=== PATIENT | female | born 1980 | race Caucasian/White ===

== ENCOUNTER 2016-03-31 17:49 | Emergency (ER) | payer OTHER ==
[~2016-03-31] VITALS: Ht 165.1 cm; Wt 57.5 kg
[~2016-03-31 17:49] MED LIST: IBUP-1050 PO; NAPR1TAB9 PO; POLY335019 PO; VNTHFA/IN INH
[2016-03-31 18:03] VITALS: TEMP 36.9; Ht 165.1 cm; Wt 57.5 kg
[2016-03-31] MEDS ORDERED: ONDANSETRON INJ 2 MG/ML 2 ML VIAL IV STA (19:26)
[2016-03-31] MEDS ORDERED: KETOROLAC TROMETHAMINE 30 MG/ML VIAL IV STA (19:26)
[2016-03-31] MEDS ORDERED: SODIUM CHLORIDE 0.9% 1000ML 1,000 ML IV STA (19:26)
[2016-03-31 20:47] LABS: HEMATOCRIT 25.2 % (37-47); MEAN CELL VOLUME 64.9 fL (80-100); MEAN CORPUSCULAR HGB CONC 27.8 g/dl (32-36); PLATELET COUNT 162 K/uL (130-400); RED BLOOD COUNT 3.88 M/uL (4.2-5.4); WHITE BLOOD COUNT 7.44 K/uL (4.8-10.8)
[2016-03-31 20:57] LABS: CALCIUM 8.4 mg/dl (8.5-10.1); CREATININE 0.56 mg/dl (0.60-1.20); POTASSIUM 3.4 mmol/L (3.5-5.1)
[2016-03-31 21:00] LABS: ALB/GLOB RATIO 1.5 (0.9-2); COMPLETE YES; EOS % 0.4 %; HYPOCHROMIA PRESENT; IG% 0.3 %; LYMPH % 5.8 %; LYMPH ABS # 0.43 K/uL (1.2-3.4); MICROCYTOSIS PRESENT; MONO % 3.8 %; NEUT % 89.7 %
--- NOTE | 2016-03-31 21:59 | EMERGENCY ROOM VISIT NOTE ---
History First contact with patient: 19:13 Chief Complaint: FLU LIKE SX Stated Complaint: FEVER,VOMITING,BODY ACHES,DIZZINESS History of Present Illness The patient is a 35 year old female who presents to the Emergency Room with complaints of flulike symptoms which began this morning. The patient reports that she has had vomiting, body aches, diarrhea, dizziness and lightheadedness. Her [id number]-[id number] was recently diagnosed with influenza. The patient has a history of anemia. She has not taken her temperature at home, but has felt feverish. She has not been taking any medications at home for her symptoms. She did not receive a flu vaccine this year. She denies any chest pain, shortness of breath, cough, abdominal pain, neck pain/stiffness. Review of Systems A complete 10-point Review of Systems was discussed with the patient, with pertinent positives and negatives listed in the History of Present Illness. All remaining Review of Systems questions can be considered negative unless otherwise specified. Past Medical/Surgical History Medical Problems: (1) IUGR (2) Migraine (3) R/O labor (4) Vaginal delivery Family History Cancer Diabetes mellitus Hypertension Social History Smoking Status: Current Every Day Smoker Alcohol Use: none Drug Use: none Marital Status: , in relationship Housing Status: lives with family, lives with significant other Occupation Status: employed Current/Historical Medications Scheduled PRN Albuterol Hfa (Ventolin Hfa), 2 PUFFS INH QID PRN for Asthma Symptoms Ibuprofen (Advil), 200-600 MG PO Q4H PRN for Pain or Fever Polyethylene Glycol 3350 (Miralax), 17 GM PO DAILY PRN for Constipation Allergies Coded Allergies: Penicillins (Verified Allergy, Severe, HIVES-SOB, 03/31/16) Physical Exam Vital Signs Date Time Temp Pulse Resp B/P Pulse Ox O2 Delivery O2 Flow Rate FiO2 03/31/16 22:08 87 18 121/60 99 03/31/16 20:43 99 18 112/63 100 Room Air 03/31/16 18:03 36.9 114 18 128/68 100 Room Air Physical Exam VITALS: Vitals are noted on the nurse's note and reviewed by myself. Vital signs stable. GENERAL: This is a 35-year-old female, in no acute distress, nondiaphoretic, well-developed well-nourished. SKIN: The skin was without rashes. EARS: External auditory canals clear, tympanic membranes pearly forde without erythema or effusion bilaterally. EYES: Pupils equal round and reactive to light and accommodation. Extraocular movements intact. MOUTH: Mucous membranes moist. Tonsils are not enlarged. Pharynx without erythema or exudate. NECK: Supple without nuchal rigidity. No lymphadenopathy. HEART: Regular rate and rhythm without murmurs gallops or rubs. LUNGS: Clear to auscultation bilaterally without wheezes, rales or rhonchi. ABDOMEN: Soft, nontender to palpation. NEURO: Patient was alert and oriented to person place and time. Medical Decision & Procedures Laboratory Results 03/31/16 20:30 Red Blood Count 3.88, Mean Corpuscular Volume 64.9, Mean Corpuscular Hemoglobin 18.0, Mean Corpuscular Hemoglobin Concent 27.8, Neutrophils (%) (Auto) 89.7, Lymphocytes (%) (Auto) 5.8, Monocytes (%) (Auto) 3.8, Eosinophils (%) (Auto) 0.4 , Basophils (%) (Auto) 0.0, Neutrophils # (Auto) 6.68, Lymphocytes # (Auto) 0.43 , Monocytes # (Auto) 0.28, Eosinophils # (Auto) 0.03, Basophils # (Auto) 0.00 03/31/16 20:30 Test 03/31/16 19:26 03/31/16 20:20 03/31/16 20:30 Urine Test NEG (NEG) Influenza Type A Antigen Neg for Influ A (NEG) Influenza Type B Antigen Neg for Influ B (NEG) White Blood Count 7.44 K/uL (4.8-10.8) Red Blood Count 3.88 M/uL (4.2-5.4) Hemoglobin 7.0 g/dL (12.0-16.0) Hematocrit 25.2 % (37-47) Mean Corpuscular Volume 64.9 fL (80-100) Mean Corpuscular Hemoglobin 18.0 pg (25-34) Mean Corpuscular Hemoglobin Concent 27.8 g/dl (32-36) Platelet Count 162 K/uL (130-400) Neutrophils (%) (Auto) 89.7 % Lymphocytes (%) (Auto) 5.8 % Monocytes (%) (Auto) 3.8 % Eosinophils (%) (Auto) 0.4 % Basophils (%) (Auto) 0.0 % Neutrophils # (Auto) 6.68 K/uL (1.4-6.5) Lymphocytes # (Auto) 0.43 K/uL (1.2-3.4) Monocytes # (Auto) 0.28 K/uL (0.11-0.59) Eosinophils # (Auto) 0.03 K/uL (0-0.5) Basophils # (Auto) 0.00 K/uL (0-0.2) RDW Standard Deviation 39.6 fL (36.4-46.3) RDW Coefficient of Variation 16.7 % (11.5-14.5) Immature Granulocyte % (Auto) 0.3 % Immature Granulocyte # (Auto) 0.02 K/uL (0.00-0.02) Hypochromasia PRESENT Microcytosis PRESENT Anion Gap 10.0 mmol/L (3-11) Est Creatinine Clear Calc Drug Dose 128.6 ml/min Estimated GFR () 142.0 Estimated GFR (Non- 122.5 BUN/Creatinine Ratio 23.0 (10-20) Calcium Level 8.4 mg/dl (8.5-10.1) Total Bilirubin 0.5 mg/dl (0.2-1) Aspartate Amino Transf (AST/SGOT) 11 U/L (15-37) Alanine Aminotransferase (ALT/SGPT) 12 U/L (12-78) Alkaline Phosphatase 58 U/L (45-117) Total Protein 6.8 gm/dl (6.4-8.2) Albumin 4.1 gm/dl (3.4-5.0) Globulin 2.7 gm/dl (2.5-4.0) Albumin/Globulin Ratio 1.5 (0.9-2) Medications Administered Medications (Trade) Dose Ordered Sig/Shoaib Route Start Time Stop Time Status Last Admin Dose Admin Sodium Chloride (Nss 1000ml) 1,000 ml @ 999 mls/hr Q1H1M STAT IV 03/31/16 19:26 03/31/16 20:26 DC 03/31/16 20:27 999 MLS/HR Ketorolac Tromethamine (Toradol Inj) 30 mg NOW STAT IV 03/31/16 19:26 03/31/16 19:29 DC 03/31/16 19:26 30 MG Ondansetron HCl (Zofran Inj) 4 mg NOW STAT IV 03/31/16 19:26 03/31/16 19:29 DC 03/31/16 20:26 4 MG Medical Decision Differential diagnosis includes gastroenteritis, colitis, influenza, viral syndrome, among others. The patient was evaluated as above. Labs were drawn and IV access was obtained. Imaging studies were performed and read by radiology as above. The patient was medicated with 1 L normal saline solution, 30 mg Toradol IV and 4 mg Zofran IV. The patient was reassessed multiple times during their stay in the emergency department and remained in stable condition. The patient is a 35-year-old female who presents today complaining of flulike symptoms. Labs revealed no leukocytosis. The patient is anemic with a hemoglobin of 7. This does I spoke with the patient, and she reports that this has actually improved from her most recent hemoglobin, which was 5. There were no concerning electrolyte abnormalities. Influenza was negative. The patient felt better after IV fluids, Toradol and Zofran. I feel that the patient likely has a gastroenteritis. She was encouraged to follow up closely with her primary care provider. Based on the patient's presentation, lab results, and imaging studies, I feel the patient is stable for outpatient treatment. The patient's case was reviewed with Dr. Elena, ED attending physician, who agreed with my assessment and treatment plan. Discharge instructions were reviewed with the patient. The patient verbalized understanding of my assessment and treatment plan and was discharged home in good condition. Impression Primary Impression: Influenza-like symptoms Departure Information Dispostion Home / Self-Care Condition GOOD Referrals No Doctor, Assigned (PCP) Patient Instructions A Signature Page, My [facility] RELEASEIF Additional Instructions For pain control, you can use the following [id number]-[id number] medicines (if >12 yo): - Regular strength (325mg/tab) Tylenol (acetaminophen) 2 tabs every 4-6 hours as needed. Do not exceed 12 tablets in a 24 hour period. Avoid taking more than 4 grams (4000 mg) of Tylenol per day. This includes any other sources of acetaminophen you may take on a regular basis. - Regular strength (200 mg/tab) Advil (ibuprofen) 1-2 tabs every 4-6 hours as needed. Do not exceed a dose of 3200 mg per day. Rest and drink plenty of fluids. Off work tomorrow. 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 Return to the emergency department with any new/concerning symptoms.
[2016-03-31 22:08] VITALS: BP 121/60; PULSE 87; O2SAT 99
== END 2016-03-31 22:09 | disposition home or self-care (01) ==
LOC: C.EDB 17:50 → C.EDC 22:09
DX: K52.9 Noninfective gastroenteritis and colitis, unspecified (principal); D64.9 Anemia, unspecified; F17.200 Nicotine dependence, unspecified, uncomplicated

== ENCOUNTER 2016-05-13 21:02 | Emergency (ER) | payer OTHER ==
[~2016-05-13] VITALS: Ht 162.6 cm; Wt 59.7 kg
[~2016-05-13 21:02] MED LIST changes: -NAPR1TAB9 PO
[2016-05-13 21:11] VITALS: TEMP 36.9; Ht 162.6 cm; Wt 59.7 kg
[2016-05-13] MEDS ORDERED: SODIUM CHLORIDE 0.9% 1000ML 1,000 ML IV STA (22:21)
[2016-05-13] MEDS ORDERED: KETOROLAC TROMETHAMINE 30 MG/ML VIAL IV STA (22:21)
[2016-05-13] MEDS ORDERED: ACETAMINOPHEN 500 MG TAB PO STA (22:21)
--- NOTE | 2016-05-13 22:26 | EMERGENCY ROOM VISIT NOTE ---
History Report prepared by Cedrick: Renetta Linares Under the Supervision of: Dr. Mic Wasserman M.D. First contact with patient: 22:13 Chief Complaint: RIB PAIN Stated Complaint: SHARP PAIN IN L SIDE History of Present Illness The patient is a 35 year old female who presents to the Emergency Room with complaints of persistent left sided rib pain that started around 1300 today. She rates her pain a 9/10 in severity. The patient has taken Ibuprofen and Tylenol which did not offer relief of her pain. She denies fevers, cough, abdominal pain, chest pain, or shortness of breath. Source of History: patient Onset: 1300 today Position: other (Ribs, left side ) Symptom Intensity: 9/10 Timing: other (Persistent) Modifying Factors (Relieving): other (None) Associated Symptoms: No SOB, No abdominal pain, No chest pain, No cough Review of Systems See HPI for pertinent positives & negatives. A total of 10 systems reviewed and were otherwise negative. Past Medical & Surgical Medical Problems: (1) IUGR (2) Migraine (3) R/O labor (4) Vaginal delivery Family History Cancer Diabetes mellitus Hypertension Social History Smoking Status: Current Every Day Smoker Alcohol Use: none Drug Use: none Marital Status: , in relationship Housing Status: lives with family, lives with significant other Occupation Status: employed Current/Historical Medications Scheduled PRN Albuterol Hfa (Ventolin Hfa), 2 PUFFS INH QID PRN for Asthma Symptoms Ibuprofen (Advil), 200-600 MG PO Q4H PRN for Pain or Fever Polyethylene Glycol 3350 (Miralax), 17 GM PO DAILY PRN for Constipation Allergies Coded Allergies: Penicillins (Verified Allergy, Severe, HIVES-SOB, 05/13/16) Physical Exam Vital Signs Date Time Temp Pulse Resp B/P Pulse Ox O2 Delivery O2 Flow Rate FiO2 05/14/16 00:41 87 20 95/66 98 05/13/16 22:45 84 18 111/71 96 Room Air 05/13/16 21:11 36.9 101 16 125/82 100 Room Air Physical Exam CONSTITUTIONAL: Mild painful distress HEENT: No icterus, moist mucous membranes NECK: No meningismus, trachea is midline. CARDIOVASCULAR: Regular rate, normal perfusion RESPIRATORY: Unlabored breathing. Clear to auscultation. GASTROINTESTINAL: Mild left upper quadrant tenderness GENITOURINARY: No flank tenderness MUSCULOSKELETAL: Full range of motion NEUROLOGIC: No acute gross focal deficits. PSYCHIATRIC: Normal affect SKIN: Normal for ethnicity. Medical Decision & Procedures Laboratory Results 05/13/16 22:40 Red Blood Count 4.05, Mean Corpuscular Volume 64.9, Mean Corpuscular Hemoglobin 17.5, Mean Corpuscular Hemoglobin Concent 27.0, Neutrophils (%) (Auto) 67.5, Lymphocytes (%) (Auto) 23.7, Monocytes (%) (Auto) 6.7, Eosinophils (%) (Auto) 1.5, Basophils (%) (Auto) 0.4, Neutrophils # (Auto) 3.50, Lymphocytes # (Auto) 1.23, Monocytes # (Auto) 0.35, Eosinophils # (Auto) 0.08, Basophils # (Auto) 0.02 05/13/16 22:40 Test 05/13/16 22:30 05/13/16 22:40 Urine Color YELLOW Urine Appearance CLEAR (CLEAR) Urine pH 7.0 (4.5-7.5) Urine Specific [place] 1.005 (1.000-1.030) Urine Protein NEG (NEG) Urine Glucose (UA) NEG (NEG) Urine Ketones NEG (NEG) Urine Occult Blood NEG (NEG) Urine Nitrite NEG (NEG) Urine Bilirubin NEG (NEG) Urine Urobilinogen NEG (NEG) Urine Leukocyte Esterase NEG (NEG) White Blood Count 5.19 K/uL (4.8-10.8) Red Blood Count 4.05 M/uL (4.2-5.4) Hemoglobin 7.1 g/dL (12.0-16.0) Hematocrit 26.3 % (37-47) Mean Corpuscular Volume 64.9 fL (80-100) Mean Corpuscular Hemoglobin 17.5 pg (25-34) Mean Corpuscular Hemoglobin Concent 27.0 g/dl (32-36) Platelet Count 186 K/uL (130-400) Neutrophils (%) (Auto) 67.5 % Lymphocytes (%) (Auto) 23.7 % Monocytes (%) (Auto) 6.7 % Eosinophils (%) (Auto) 1.5 % Basophils (%) (Auto) 0.4 % Neutrophils # (Auto) 3.50 K/uL (1.4-6.5) Lymphocytes # (Auto) 1.23 K/uL (1.2-3.4) Monocytes # (Auto) 0.35 K/uL (0.11-0.59) Eosinophils # (Auto) 0.08 K/uL (0-0.5) Basophils # (Auto) 0.02 K/uL (0-0.2) RDW Standard Deviation 41.8 fL (36.4-46.3) RDW Coefficient of Variation 17.6 % (11.5-14.5) Immature Granulocyte % (Auto) 0.2 % Immature Granulocyte # (Auto) 0.01 K/uL (0.00-0.02) Large Platelets 1+ Anisocytosis PRESENT Microcytosis PRESENT Anion Gap 11.0 mmol/L (3-11) Est Creatinine Clear Calc Drug Dose 119.2 ml/min Estimated GFR () 140.4 Estimated GFR (Non- 121.1 BUN/Creatinine Ratio 20.9 (10-20) Calcium Level 8.9 mg/dl (8.5-10.1) Labs reviewed by ED physician. Medications Administered Medications (Trade) Dose Ordered Sig/Shoaib Route Start Time Stop Time Status Last Admin Dose Admin Acetaminophen 1000 mg 1,000 mg NOW STAT PO 05/13/16 22:21 05/13/16 22:24 DC 05/13/16 22:53 1,000 MG Sodium Chloride (Nss 1000ml) 1,000 ml @ 0 mls/hr Q0M STAT IV 05/13/16 22:21 05/13/16 22:24 DC 05/13/16 22:52 999 MLS/HR Ketorolac Tromethamine (Toradol Inj) 30 mg NOW STAT IV 05/13/16 22:21 05/13/16 22:25 DC 05/13/16 22:52 30 MG Procedure X-ray results as stated below per interpretation by me and the radiologist. CHEST 2 VIEWS ROUTINE CLINICAL HISTORY: chest pain pain COMPARISON STUDY: 09/23/2015 FINDINGS: The bones soft tissues and hemidiaphragms are normal. The cardiomediastinal silhouette is normal. The lungs are clear. The pulmonary vasculature is normal. IMPRESSION: Negative chest. Electronically signed by: Will Woodward M.D. 05/13/2016 10:42 PM Dictated Date/Time: 05/13/2016 10:42 PM ED Course 2218: Past medical records reviewed. The patient was evaluated in room B6. A complete history and physical examination was performed. 222: Ordered Toradol Injection 30 mg IV, Sodium Chloride 1,000 ml @ 0 mls/hr Wide Open IV, Tylenol Tablet 1,000 mg PO. Medical Decision Differential diagnoses include but are not limited to; Pneumothorax, abdominal mass, kidney stone. 35 y/o presented with vague LUQ pain. No nausea nor vomiting nor diarrhea. Labs notable for microcytic anemia which patient states is chronic for years on iron supplementation. Case management requested to work with patient to facilitate outpatient follow-up. (-) melena and reportedly normal stool studies in the past. She declined rectal exam today. Patient comfortable prior to discharge. Understands to f/u with PCP. Impression Primary Impression: Abdominal pain Scribe Attestation The scribe's documentation has been prepared under my direction and personally reviewed by me in its entirety. I confirm that the note above accurately reflects all work, treatment, procedures, and medical decision making performed by me. Departure Information Referrals No Doctor, Assigned (PCP) Patient Instructions My [facility]
--- NOTE | 2016-05-13 22:43 | DIAGNOSTIC IMAGING REPORT ---
CHEST 2 VIEWS ROUTINE CLINICAL HISTORY: chest pain pain COMPARISON STUDY: 09/23/2015 FINDINGS: The bones soft tissues and hemidiaphragms are normal. The cardiomediastinal silhouette is normal. The lungs are clear. The pulmonary vasculature is normal. IMPRESSION: Negative chest. Electronically signed by: Will Woodward M.D. 05/13/2016 10:42 PM Dictated Date/Time: 05/13/2016 10:42 PM
[2016-05-13] MEDS ORDERED: OPTIRAY 320 IV PRN (22:45)
[2016-05-13 23:18] LABS: BUN/CREATININE RATIO 20.9 (10-20); CALCIUM 8.9 mg/dl (8.5-10.1); CREATININE 0.58 mg/dl (0.60-1.20); POTASSIUM 3.6 mmol/L (3.5-5.1)
[2016-05-13 23:29] LABS: HEMATOCRIT 26.3 % (37-47); MEAN CELL VOLUME 64.9 fL (80-100); MEAN CORPUSCULAR HEMOGLOBIN 17.5 pg (25-34); PLATELET COUNT 186 K/uL (130-400); RED BLOOD COUNT 4.05 M/uL (4.2-5.4); WHITE BLOOD COUNT 5.19 K/uL (4.8-10.8)
[2016-05-13 23:34] LABS: URINE APPEARANCE CLEAR (CLEAR); URINE BILIRUBIN NEG (NEG); URINE COLOR YELLOW; URINE NITRITE NEG (NEG); URINE SPECIFIC GRAVITY 1.005 (1.000-1.030); UROBILINOGEN NEG (NEG)
[2016-05-13 23:38] LABS: MANUAL MICROSCOPIC REQUIRED? NO; REVIEW REQ? NO
[2016-05-14 00:28] LABS: ANISOCYTOSIS PRESENT; BASO % 0.4 %; BASO ABS # 0.02 K/uL (0-0.2); COMPLETE YES; EOS % 1.5 %; IG% 0.2 %; LARGE PLATELETS 1+; LYMPH % 23.7 %; LYMPH ABS # 1.23 K/uL (1.2-3.4); MICROCYTOSIS PRESENT; MONO % 6.7 %; NEUT % 67.5 %
[2016-05-14 00:41] VITALS: BP 95/66; PULSE 87; O2SAT 98
[2016-05-14 01:29] LABS: BENZODIAZEPINE, URINE NEG (NEG); COCAINE,URINE NEG (NEG); PHENCYCLIDINE, URINE NEG (NEG)
--- NOTE | 2016-05-14 07:14 | DIAGNOSTIC IMAGING REPORT ---
CT OF THE ABDOMEN AND PELVIS WITH CONTRAST CLINICAL HISTORY: Left upper quadrant abdominal pain. COMPARISON STUDY: CT of the abdomen and pelvis February 15, 2016. TECHNIQUE: Following IV administration of 119 mL of Optiray-320, axial images of the abdomen and pelvis were obtained from the lung bases to the proximal femurs. Images were reviewed in the axial, sagittal, and coronal planes. IV contrast was administered without complication. CT DOSE: 268.11 mGy.cm FINDINGS: Lung bases are clear. The liver, spleen, adrenal glands, kidneys and pancreas are normal. There is no peripancreatic or pericholecystic infiltration. There is no hydronephrosis. The caliber and wall thickness of small and large bowel are normal. There is a moderate amount of stool within the colon. There are several suspected follicles within the left ovary. No pneumatosis, free air or portal venous gas is present. There is no hydronephrosis. Skeletal structures are unremarkable. There is a small fat-containing umbilical hernia. The appendix is normal. IMPRESSION: 1. No acute process within the abdomen or pelvis. 2. Moderate amount of stool within the colon. Electronically signed by: Singh Blackburn M.D. 05/14/2016 7:12 AM Dictated Date/Time: 05/14/2016 7:07 AM
[2016-05-14 08:51] LABS: ISTAT CREATININE 0.6 mg/dl (0.6-1.3); ISTAT HEMOGLOBIN 8.8 g/dl (12.0-16.0); ISTAT IONIZED CALCIUM 1.18 mmol/l (1.12-1.32)
== END 2016-05-14 00:42 | disposition home or self-care (01) ==
LOC: C.EDB 21:04
DX: R10.12 Left upper quadrant pain (principal); F17.200 Nicotine dependence, unspecified, uncomplicated; Z88.0 Allergy status to penicillin; Z80.9 Family history of malignant neoplasm, unspecified; Z83.3 Family history of diabetes mellitus; Z82.49 Family history of ischemic heart disease and other diseases of the circulatory system

== ENCOUNTER 2016-06-27 22:10 | Emergency (ER) | payer OTHER ==
[~2016-06-27] VITALS: Ht 165.1 cm; Wt 57.7 kg
[2016-06-27 22:12] VITALS: Ht 165.1 cm; Wt 57.7 kg
[2016-06-27] MEDS ORDERED: ALBUT/IPRATROP 3MG/0.5MG NEB 3 ML VIAL INH ONE (22:30)
[2016-06-27] MEDS ORDERED: FERR1TAB23 PO (22:32)
--- NOTE | 2016-06-27 22:54 | DIAGNOSTIC IMAGING REPORT ---
CHEST 2 VIEWS ROUTINE CLINICAL HISTORY: COUGH CONGESTION COMPARISON STUDY: 05/13/2016 FINDINGS: The cardiac and mediastinal contours are normal. There is no evidence of focal pulmonary consolidation. There is no evidence of failure. No pleural effusions are visualized.[ IMPRESSION: No active disease in the chest. Electronically signed by: Javan Victor M.D. 06/27/2016 10:53 PM Dictated Date/Time: 06/27/2016 10:52 PM
[2016-06-27 23:46] VITALS: BP 110/58; PULSE 100; TEMP 36.9; O2SAT 100
--- NOTE | 2016-06-28 01:47 | EMERGENCY ROOM VISIT NOTE ---
History First contact with patient: 22:15 Chief Complaint: FLU LIKE SX Stated Complaint: COUGH,FEVER,SINUS/CHEST CONGESTION History of Present Illness The patient is a 35 year old female who presents to the Emergency Room with complaints of sinus and chest congestion with cough for the past 3-4 days. The patient does not have a working thermometer at home but thinks that she had a fever. The patient states the cough is nonproductive. She has not had shortness of breath or dyspnea on exertion. No chest pains or abdominal pain. She has been eating, drinking, using the bathroom is normal. She has been using intermittent ibuprofen and Tylenol for her symptoms. She does have a history of tobacco use, and states that she has not been able to smoke as much as normal because of her symptoms. She rates her current discomfort a 7/10. The patient presents to the ER at the same time as her son who is also being seen for similar symptoms. Review of Systems More than 10 systems were reviewed and otherwise negative with the exception of history of present illness. Past Medical/Surgical History Medical Problems: (1) IUGR (2) Migraine (3) R/O labor (4) Vaginal delivery Family History Cancer Diabetes mellitus Hypertension Social History Smoking Status: Current Every Day Smoker Alcohol Use: none Drug Use: none Marital Status: , in relationship Housing Status: lives with family, lives with significant other Occupation Status: employed Current/Historical Medications Scheduled Ferrous Sulfate (Iron), 1 TAB PO DAILY Scheduled PRN Albuterol Hfa (Ventolin Hfa), 2 PUFFS INH QID PRN for Asthma Symptoms Ibuprofen (Advil), 200-600 MG PO Q4H PRN for Pain or Fever Allergies Coded Allergies: Penicillins (Verified Allergy, Severe, HIVES-SOB, 05/13/16) Physical Exam Vital Signs Date Time Temp Pulse Resp B/P Pulse Ox O2 Delivery O2 Flow Rate FiO2 06/27/16 23:46 36.9 100 18 110/58 100 Room Air 06/27/16 22:12 36.6 130 20 119/72 97 Room Air Pain Rating (0-10): 9.0 Physical Exam VITALS: Vitals are noted on the nurse's note and reviewed by myself. Vital signs stable. GENERAL: Well-developed, well-nourished, white female, who is in no acute distress and resting comfortably. Patient is cooperative with the examination. HEAD: Normocephalic atraumatic. EARS: External ear normal. External auditory canals clear, tympanic membranes pearly forde without erythema or effusion bilaterally. EYES: Pupils equal round and reactive to light and accommodation. Conjunctivae without injection, sclerae without icterus. Extraocular movements intact. NOSE: Patent, turbinates without inflammation or discharge. MOUTH: Mucous membranes moist. Tonsils are not enlarged. Pharynx without erythema, blood, or exudate. Uvula midline. Airway patent. NECK: Supple without nuchal rigidity. No lymphadenopathy. No thyromegaly. Cervical spine is nontender. HEART: Regular rate and rhythm without murmurs gallops or rubs. LUNGS: Scattered wheezing and rhonchi without crackles. Dry cough appreciated. ABDOMEN: Positive normal bowel sounds x 4. Soft, nontender, without masses or organomegaly. No guarding or rebound tenderness. MUSCULOSKELETAL: No muscle atrophy, erythema, or edema noted. Full range of motion without joint tenderness in all extremities. Medical Decision & Procedures ER Provider Diagnostic Interpretation: CHEST 2 VIEWS ROUTINE CLINICAL HISTORY: COUGH CONGESTION COMPARISON STUDY: 05/13/2016 FINDINGS: The cardiac and mediastinal contours are normal. There is no evidence of focal pulmonary consolidation. There is no evidence of failure. No pleural effusions are visualized.[ IMPRESSION: No active disease in the chest. Medications Administered Medications (Trade) Dose Ordered Sig/Shoaib Route Start Time Stop Time Status Last Admin Dose Admin Albuterol/ Ipratropium (Duoneb) 3 ml NOW ONCE INH 06/27/16 22:30 06/27/16 22:31 DC 06/27/16 22:36 3 ML ED Course Physical exam and history were performed. Nursing notes and EMR were reviewed. Patient appears to have cough and chest congestion for the past several days. The patient does not appear toxic on exam but she does have a mild wheeze with scattered rhonchi. She was given a DuoNeb treatment here in the department and chest x-ray was performed. Chest x-ray does not show significant acute findings. The patient is being seen at the same time as her son for similar complaints. The patient son was positive for influenza B, and this could be the cause of the patient's discomfort. Based on the timing of her symptoms she is outside the window for Tamiflu, and I will treat her conservatively. Evidently she has inhalers at home that she should continue to use. I recommended that she discontinue smoking. She should use [id number] ibuprofen and Tylenol and follow-up with her primary care physician this week. She was otherwise invited back to the ER with any new, worsening, or concerning symptoms. The chart was completed utilizing [employer] Voice Recognition Software. Grammatical errors, random word insertions, pronoun errors, and incomplete sentences are an occasional consequence of this system due to software limitations, ambient noise, and hardware issues. Any formal questions or concerns about the content, text, or information contained within the body of this dictation should be directly addressed to the provider for clarification. . Medical Decision Differential diagnosis: Etiologies such as viral syndrome, otitis, pharyngitis, pneumonia, influenza, meningitis, urinary tract infection, sepsis, bacteremia, as well as others were entertained. Impression Primary Impression: Influenza-like symptoms Departure Information Dispostion Home / Self-Care Condition GOOD Forms HOME CARE DOCUMENTATION FORM, Work Instructions, Additional Instructions: Patient was seen and evaluated today in the emergency department fo medical care. Return to work on 06/30/2016. Please excuse. IMPORTANT VISIT INFORMATION Patient Instructions My [facility] Additional Instructions You were seen and evaluated today on an emergency basis only. This is not a substitute for, or an effort to provide, complete comprehensive medical care. It is not possible to recognize and treat all injuries or illnesses in a single emergency department visit. For this reason it is recommended that you followup with your primary care physician this week for ongoing care and evaluation. For baseline pain relief you may alternate ibuprofen and acetaminophen every 4 hours for pain control. Take 600 mg ibuprofen (Advil) and then 4 hours later take 1000 mg acetaminophen (Tylenol). Do not take more than 3000 mg acetaminophen in a single day. You are welcome to return to the emergency department anytime with new, worsening, or concerning symptoms. Work Instructions Additional Work Instructions: Patient was seen and evaluated today in the emergency department for medical care. Return to work on 06/30/2016. Please excuse.
== END 2016-06-27 23:55 | disposition home or self-care (01) ==
LOC: C.EDB 22:10 → C.EDA 23:55
DX: R68.89 Other general symptoms and signs (principal); F17.210 Nicotine dependence, cigarettes, uncomplicated; G43.909 Migraine, unspecified, not intractable, without status migrainosus; Z80.9 Family history of malignant neoplasm, unspecified; Z83.3 Family history of diabetes mellitus; Z82.49 Family history of ischemic heart disease and other diseases of the circulatory system

== ENCOUNTER 2016-07-05 12:48 | Emergency (ER) | payer OTHER ==
[~2016-07-05] VITALS: Ht 165.1 cm; Wt 55.0 kg
[~2016-07-05 12:48] MED LIST changes: +FERR1TAB23 PO; -POLY335019 PO
[2016-07-05 12:55] VITALS: TEMP 36.7; Ht 165.1 cm; Wt 55.0 kg
[2016-07-05] MEDS ORDERED: DIPHTHERIA/TETANUS/PERTUSSIS 0.5 ML SYR/VIAL IM. ONE (13:15)
[2016-07-05] MEDS ORDERED: XYLOCAINE 1%/SOD BICARB 20 ML VIAL INFIL ONE (13:15)
--- NOTE | 2016-07-05 14:13 | DIAGNOSTIC IMAGING REPORT ---
RIGHT TOE(S) MIN 2 VIEWS CLINICAL HISTORY: Right great toenail subluxation. COMPARISON: None FINDINGS: No acute fracture of the right great toe is identified. Alignment is anatomic. The toenail of the great toe appears displaced. IMPRESSION: 1. No acute fracture or dislocation of the right great toe. 2. Displaced toenail of the right great toe. Electronically signed by: Singh Blackburn M.D. 07/05/2016 2:11 PM Dictated Date/Time: 07/05/2016 2:10 PM
[2016-07-05 14:42] VITALS: BP 117/71; PULSE 93; O2SAT 100
[2016-07-05] MEDS ORDERED: CEPH500C PO (14:49)
[2016-07-05] MEDS ORDERED: OXYC1TAB3 PO (14:49)
--- NOTE | 2016-07-05 14:53 | EMERGENCY ROOM VISIT NOTE ---
History First contact with patient: 13:03 Chief Complaint: TOE PAIN, INJURY Stated Complaint: BIG TOE NAIL RIPPED OFF History of Present Illness The patient is a 35 year old female who presents to the Emergency Room with complaints of a right great toenail injury. The patient reports that she got out of bed this morning and accidentally kicked the foot of her bed. She reports that the nail was folded up. She pushed it back down. She denies any significant bleeding. She rates her discomfort an 8 out of 10. She is uncertain of her last tetanus immunization. Review of Systems 10 system review was performed and was negative except for pertinent positives and negatives as indicated in history of present illness Past Medical/Surgical History Medical Problems: (1) IUGR (2) Migraine (3) R/O labor (4) Vaginal delivery Family History Cancer Diabetes mellitus Hypertension Social History Smoking Status: Current Every Day Smoker Alcohol Use: none Drug Use: none Marital Status: , in relationship Housing Status: lives with family, lives with significant other Occupation Status: employed Current/Historical Medications Scheduled Cephalexin Monohydrate (Keflex), 500 MG PO QID Ferrous Sulfate (Iron), 1 TAB PO DAILY Scheduled PRN Albuterol Hfa (Ventolin Hfa), 2 PUFFS INH QID PRN for Asthma Symptoms Ibuprofen (Advil), 200-600 MG PO Q4H PRN for Pain or Fever Oxycodone Ir (Roxicodone Ir), 1-2 TAB PO Q4H PRN for Pain Allergies Coded Allergies: Penicillins (Verified Allergy, Severe, HIVES-SOB, 07/05/16) Physical Exam Vital Signs Date Time Temp Pulse Resp B/P Pulse Ox O2 Delivery O2 Flow Rate FiO2 07/05/16 14:42 93 16 117/71 100 Room Air 07/05/16 12:55 36.7 105 18 119/73 100 Room Air Physical Exam CONSTITUTIONAL: Healthy and well nourished. Alert and oriented X 3 with positive affect. HEENT: Normocephalic, atraumatic. Pupils equal, round and reactive. NECK: Full active range of motion without discomfort. RESPIRATORY: Clear to auscultation bilaterally with no wheezing, crackles, rhonchi or stridor. CARDIOVASCULAR: Regular rate and rhythm with no murmurs, rubs or gallops. MUSCULOSKELETAL: Examination of the right great toe shows a mildly subluxed nail at the medial base, and the nail is from the underlying nail bed. I do not appreciate any significant nail bed laceration. The nail is thickened and onychomycotic. Capillary refill is less than 2 seconds. The patient has no other tenderness to palpation of the MTP joint or metatarsals. INTEGUMENTARY: No rash or other significant dermatologic conditions noted. NEUROLOGIC: No focal neurologic deficits noted. Right great toe is sensory intact. Medical Decision & Procedures ER Provider Diagnostic Interpretation: My interpretation of right great toe x-rays does not show any acute fractures or dislocations. Radiologist report is as follows: RIGHT TOE(S) MIN 2 VIEWS CLINICAL HISTORY: Right great toenail subluxation. COMPARISON: None FINDINGS: No acute fracture of the right great toe is identified. Alignment is anatomic. The toenail of the great toe appears displaced. IMPRESSION: 1. No acute fracture or dislocation of the right great toe. 2. Displaced toenail of the right great toe. Medications Administered Medications (Trade) Dose Ordered Sig/Shoaib Route Start Time Stop Time Status Last Admin Dose Admin Diphtheria/ Pertussis/Tetanus Vacc (Adacel Inj) 0.5 ml ONCE ONCE IM. 07/05/16 13:15 07/05/16 13:16 DC 07/05/16 13:20 0.5 ML Procedure Toe wound evaluation was performed under digital block anesthesia after receiving verbal consent from the patient. Using buffered 1% lidocaine without epinephrine, good digital block anesthesia was administered. The toe was in painted with iodine and allowed to dry. Digital block anesthesia was successfully administered. Further evaluation shows that the nail plate is loose distally. The proximal medial base of the nail was reduced using iris scissors, then the nail was secured on 3 corners using 4-0 nylon simple interrupted sutures. A bacitracin dressing was applied. ED Course Patient history and physical exam were performed. Nurse's notes were reviewed. Vital signs were reviewed and were normal. X-rays of the right great toe were normal. Under digital block anesthesia, the nail was reduced and sutured in place to avoid any further traumatic avulsion. The patient will be treated with Keflex antibiotics. The patient reports that she does not have a PCP for further follow-up. Ice and elevation for swelling. Ibuprofen and Tylenol in alternating fashion as needed for baseline pain relief. The patient also received a prescription for OxyIR if needed for breakthrough pain. She was instructed to return in 2 weeks for suture removal, sooner for any signs of developing infection. The patient voiced understanding of all discharge instructions, and denied any pain at the conclusion of my exam. Medical Decision Impression Primary Impression: Right great toenail subluxation Departure Information Prescriptions Oxycodone Ir (Roxicodone Ir) 5 Mg Tab 1-2 TAB PO Q4H Y for Pain, #15 TAB For Initial Treatment Prov: Yunior Mckinley PA 07/05/16 Cephalexin Monohydrate (Keflex) 500 Mg Cap 500 MG PO QID for 7 Days, #28 CAP Prov: Yunior Mckinley PA 07/05/16 Referrals No Doctor, Assigned (PCP) Patient Instructions My [facility]
== END 2016-07-05 15:01 | disposition home or self-care (01) ==
LOC: C.EDB 12:49 → C.EDD 15:01
DX: S91.201A Unspecified open wound of right great toe with damage to nail, initial encounter (principal); W22.09XA Striking against other stationary object, initial encounter; F17.210 Nicotine dependence, cigarettes, uncomplicated; Z80.9 Family history of malignant neoplasm, unspecified; Z83.3 Family history of diabetes mellitus; Z82.49 Family history of ischemic heart disease and other diseases of the circulatory system; Z79.899 Other long term (current) drug therapy

== ENCOUNTER 2016-07-12 19:34 | Emergency (ER) | payer OTHER ==
[~2016-07-12] VITALS: Ht 165.1 cm; Wt 58.0 kg
[~2016-07-12 19:34] MED LIST changes: +CEPH500C PO; +OXYC1TAB3 PO
[2016-07-12 19:49] VITALS: TEMP 36.9; Ht 165.1 cm; Wt 58.0 kg
[2016-07-12] MEDS ORDERED: GELATIN SPONGE 12-7MM EXT ONE (20:15)
--- NOTE | 2016-07-12 20:29 | EMERGENCY ROOM VISIT NOTE ---
ED Visit Note First contact with patient: 19:53 CHIEF COMPLAINT: RIGHT index finger laceration HISTORY OF PRESENT ILLNESS: This 35-year-old female patient presents to the emergency department this evening after cutting the RIGHT index finger on a piece of glass. The bleeding has not stopped. There is no weakness or numbness of the area. Tetanus shot is up-to-date. Full range of motion of the RIGHT index finger. The patient rates the pain as stinging and 8/10. She reports persistent pain to the RIGHT great toe after having nailbed repair. She denies any redness, swelling, discharge, or drainage. She reports pain with ambulation. REVIEW OF SYSTEMS: A 6 system review of systems was completed with positives and pertinent negatives listed in the HPI. ALLERGIES: Penicillins MEDICATIONS: Reviewed and discussed with the patient. PMH: No pertinent past medical history. SOCIAL HISTORY: Patient is a 35-year-old female who lives locally. PHYSICAL EXAM: Vital Signs: Reviewed Nurse's notes, vital signs stable. GENERAL : 35-year-old female, in no acute distress, well-developed, well-nourished. SKIN: There is a 0.5 cm long avulsion laceration noted to the dorsal surface the distal LEFT second digit. It is superficial and the top layer of skin has been avulsed. There is no foreign material in the wound and it looks clean. There is active bleeding. No deep structures are seen in the base of the wound. Extension and flexion of the LEFT second digit is full and strong. Sensation to pain and light touch is intact. EMERGENCY DEPARTMENT COURSE: I examined the patient. Verbal consent was obtained to perform the procedure. The LEFT 2nd digit was cleaned with alcohol. Gelfoam was applied to the avulsion laceration and the area was dressed with a pressure dressing. The bleeding stopped. The patient tolerated the procedure well. Patient was provided a new postop shoe as she is wearing a smaller one and it continues to hurt her injured RIGHT great toe. The patient was discharged home in stable condition. DIAGNOSIS: Avulsion Laceration of the LEFT 2nd Digit DISCHARGE INSTRUCTIONS & TREATMENT: You have been treated in the Emergency Department today for your LEFT 2nd Digit Avulsion. Leave the GELFOAM and dressing in place for the next 48 hours. Keep the dressing clean and dry until time for removal. To remove the GELFOAM dressing, remove the overlying tape and then soak the wound in warm water until the piece of GELFOAM can be easily removed. Proper wound care is essential for adequate wound healing and infection prevention. You can shower and clean the wound with soap and water. Do not scour over the wound, pat dry with a towel. You can use an antibiotic ointment with a dressing/bandage over the wound for the next 3-4 days. After this time you may leave the wound dry and open to the air. Look for signs of infection of the wound including: increased pain, swelling, foul discharge, streaking, or increased temperature. If any of these are noticed you should return to the Emergency Department for further assessment and treatment. As with any laceration you may have received nerve damage to the surrounding tissues. This damage could be permanent. For pain control, you can use the following oyel-wuk-dyhnkjv medicines (if >12 yo): - Regular strength (325mg/tab) Tylenol (acetaminophen) 2 tabs every 4-6 hours as needed. Do not exceed 12 tablets in a 24 hour period. Avoid taking more than 4 grams (4000 mg) of Tylenol per day. This includes any other sources of acetaminophen you may take on a regular basis. - Regular strength (200 mg/tab) Advil (ibuprofen) 1-2 tabs every 4-6 hours as needed. Do not exceed a dose of 3200 mg per day. Return to the emergency department if your symptoms worsen despite treatment course outlined above. Problem List Medical Problems: (1) Migraine Status: Chronic (2) Vaginal delivery Status: Resolved Current/Historical Medications Scheduled Cephalexin Monohydrate (Keflex), 500 MG PO QID Ferrous Sulfate (Iron), 1 TAB PO DAILY Scheduled PRN Albuterol Hfa (Ventolin Hfa), 2 PUFFS INH QID PRN for Asthma Symptoms Ibuprofen (Advil), 200-600 MG PO Q4H PRN for Pain or Fever Allergies Coded Allergies: Penicillins (Verified Allergy, Severe, HIVES-SOB, 07/05/16) Vital Signs Date Time Temp Pulse Resp B/P Pulse Ox O2 Delivery O2 Flow Rate FiO2 07/12/16 20:51 90 20 143/81 97 07/12/16 19:49 36.9 96 16 133/78 100 Departure Information Impression Primary Impression: Avulsion of skin of finger Additional Impression: Toe pain, right Dispostion Home / Self-Care Condition GOOD Referrals No Doctor, Assigned (PCP) Patient Instructions My [facility] Additional Instructions You have been treated in the Emergency Department today for your LEFT 2nd Digit Avulsion. Leave the GELFOAM and dressing in place for the next 48 hours. Keep the dressing clean and dry until time for removal. To remove the GELFOAM dressing, remove the overlying tape and then soak the wound in warm water until the piece of GELFOAM can be easily removed. Proper wound care is essential for adequate wound healing and infection prevention. You can shower and clean the wound with soap and water. Do not scour over the wound, pat dry with a towel. You can use an antibiotic ointment with a dressing/bandage over the wound for the next 3-4 days. After this time you may leave the wound dry and open to the air. Look for signs of infection of the wound including: increased pain, swelling, foul discharge, streaking, or increased temperature. If any of these are noticed you should return to the Emergency Department for further assessment and treatment. As with any laceration you may have received nerve damage to the surrounding tissues. This damage could be permanent. For pain control, you can use the following hfbm-luw-bladsnz medicines (if >12 yo): - Regular strength (325mg/tab) Tylenol (acetaminophen) 2 tabs every 4-6 hours as needed. Do not exceed 12 tablets in a 24 hour period. Avoid taking more than 4 grams (4000 mg) of Tylenol per day. This includes any other sources of acetaminophen you may take on a regular basis. - Regular strength (200 mg/tab) Advil (ibuprofen) 1-2 tabs every 4-6 hours as needed. Do not exceed a dose of 3200 mg per day. Return to the emergency department if your symptoms worsen despite treatment course outlined above. Problem Qualifiers Primary Impression: Avulsion of skin of finger Encounter type: initial encounter Qualified Codes: S61.209A - Unspecified open wound of unspecified finger without damage to nail, initial encounter
[2016-07-12 20:51] VITALS: BP 143/81; PULSE 90; O2SAT 97
== END 2016-07-12 20:53 | disposition home or self-care (01) ==
LOC: C.EDB 19:36 → C.EDC 20:53
DX: S61.211A Laceration without foreign body of left index finger without damage to nail, initial encounter (principal); W25.XXXA Contact with sharp glass, initial encounter; M79.674 Pain in right toe(s); G43.909 Migraine, unspecified, not intractable, without status migrainosus

== ENCOUNTER 2016-07-21 16:39 | Emergency (ER) | payer OTHER ==
[~2016-07-21] VITALS: Ht 165.1 cm; Wt 58.0 kg
[~2016-07-21 16:39] MED LIST changes: -CEPH500C PO; -OXYC1TAB3 PO
[2016-07-21 16:45] VITALS: TEMP 37.5; Ht 165.1 cm; Wt 58.0 kg
[2016-07-21] MEDS ORDERED: NAPR1TAB9 PO (16:55)
--- NOTE | 2016-07-21 17:43 | EMERGENCY ROOM VISIT NOTE ---
ED Visit Note First contact with patient: 17:02 CHIEF COMPLAINT: Suture removal This patient returns to the ED today for removal of sutures that were placed 16 days ago. There has been no swelling, redness, or drainage from the wound. The patient feels like the laceration is healing well. REVIEW OF SYSTEMS: Head: No headache, injury or neck pain. Skin: No rash, new lesions, or masses. General: No fever or chills, fatigue, loss of appetite , or significant recent weight gain or loss. PMH: The patient is healthy; there is no significant medical or surgical history. SOCIAL HISTORY: Patient lives at home. PHYSICAL EXAM: Vital Signs: Reviewed Nurse's notes. There is a sutured wound on the RIGHT great toe with no signs of infection. There is no erythema, swelling, or tenderness. EMERGENCY DEPARTMENT COURSE: The sutures were removed without any difficulty and there was no separation of the wound edges. DIAGNOSIS: Healing laceration and suture removal DISCHARGE INSTRUCTIONS AND TREATMENT: Wash any remaining crusts off of the wound today and resume your normal activities. Problem List Medical Problems: (1) Migraine Status: Chronic (2) Vaginal delivery Status: Resolved Current/Historical Medications Scheduled Ferrous Sulfate (Iron), 1 TAB PO DAILY Naproxen (Aleve), 220 MG PO DAILY Scheduled PRN Ibuprofen (Advil), 200-600 MG PO Q4H PRN for Pain or Fever Allergies Coded Allergies: Penicillins (Verified Allergy, Severe, HIVES-SOB, 07/21/16) Vital Signs Date Time Temp Pulse Resp B/P Pulse Ox O2 Delivery O2 Flow Rate FiO2 07/21/16 17:52 86 18 100 07/21/16 16:45 37.5 95 18 136/67 95 Room Air Departure Information Impression Primary Impression: Encounter for removal of sutures Dispostion Home / Self-Care Condition GOOD Referrals No Doctor, Assigned (PCP) Patient Instructions My [facility] Additional Instructions Wash any remaining crusts off of the wound today and resume your normal activities.
[2016-07-21 17:52] VITALS: BP 116/72; PULSE 86; O2SAT 100
== END 2016-07-21 17:52 | disposition home or self-care (01) ==
LOC: C.EDB 16:41 → C.EDD 17:52
DX: S91.111D Laceration without foreign body of right great toe without damage to nail, subsequent encounter (principal); X58.XXXD Exposure to other specified factors, subsequent encounter; G43.909 Migraine, unspecified, not intractable, without status migrainosus

== ENCOUNTER 2016-12-08 18:47 | Emergency (ER) | payer OTHER ==
[~2016-12-08] VITALS: Ht 165.1 cm; Wt 54.2 kg
[~2016-12-08 18:47] MED LIST changes: +NAPR1TAB9 PO; -VNTHFA/IN INH
[2016-12-08 18:57] VITALS: TEMP 36.7; Ht 165.1 cm; Wt 54.2 kg
[2016-12-08] MEDS ORDERED: KETOROLAC TROMETHAMINE 30 MG/ML VIAL IV STA (20:00)
[2016-12-08] MEDS ORDERED: SODIUM CHLORIDE 0.9% 1000ML 1,000 ML IV STA (20:00)
[2016-12-08] MEDS ORDERED: PROCHLORPERAZINE 5 MG/ML 2 ML VIAL IV STA (20:00)
[2016-12-08] MEDS ORDERED: DiphenhydrAMINE HCL 50 MG/ML VIAL IV STA (20:00)
[2016-12-08] MEDS ORDERED: AZITHROMYCIN 250 MG TAB PO STA (20:00)
--- NOTE | 2016-12-08 20:00 | EMERGENCY ROOM VISIT NOTE ---
History Report prepared by Cedrick: Eva Harden Under the Supervision of: Dr. Wagner Maki M.D. First contact with patient: 19:40 Chief Complaint: FEVER Stated Complaint: FEVER,BODY ACHES History of Present Illness The patient is a 36 year old female who presents to the Emergency Room with complaints of a constant fever beginning a few days ago. The patient states that she got the flu shot 4 days ago and has not been feeling well since. She complains of a headache, body aches, weakness. She denies any neck sedrick. The patient states that this is not the worst headache of her life. She reports that she has been taking Theraflu over the counter and Motrin. Source of History: patient Onset: a few days ago Position: other (global) Quality: other (fever) Timing: constant Associated Symptoms: + headache, + weakness, No neck pain Review of Systems See HPI for pertinent positives & negatives. A total of 10 systems reviewed and were otherwise negative. Past Medical & Surgical Medical Problems: (1) IUGR (2) Migraine (3) R/O labor (4) Vaginal delivery Family History Cancer Diabetes mellitus Hypertension Social History Smoking Status: Current Every Day Smoker Alcohol Use: none Drug Use: none Marital Status: , in relationship Housing Status: lives with family, lives with significant other Occupation Status: employed Current/Historical Medications Scheduled Azithromycin (Zithromax), 250 MG PO DAILY Ferrous Sulfate (Iron), 1 TAB PO DAILY Naproxen (Aleve), 220 MG PO DAILY Scheduled PRN Ibuprofen (Advil), 200-600 MG PO Q4H PRN for Pain or Fever Allergies Coded Allergies: Penicillins (Verified Allergy, Severe, HIVES-SOB, 12/08/16) Physical Exam Vital Signs Date Time Temp Pulse Resp B/P (MAP) Pulse Ox O2 Delivery O2 Flow Rate FiO2 12/08/16 22:16 95 18 91/56 99 12/08/16 20:51 99 12/08/16 20:45 97 18 93/59 100 Room Air 12/08/16 20:37 100 Room Air 12/08/16 18:57 36.7 113 17 110/73 100 Room Air Physical Exam GENERAL: Patient is a healthy-appearing well-nourished female HEAD: Normocephalic atraumatic EYES: Ocular movements intact pupils equal and react to light OROPHARYNX mucous membranes are moist no exudates present no erythema or edema present NECK: Supple no nuchal rigidity CHEST: Good equal expansion LUNGS: Clear and equal to auscultation CARDIAC: Normal S1 and S2 ABDOMEN: Soft nontender no guarding BACK: No CVA tenderness EXTREMITIES: No pain upon palpation normal muscle strength in all groups no clubbing cyanosis or edema NEURO: Patient is following commands and answering questions appropriately. Alert and oriented x3 Cranial Nerves 2-12 grossly intact, no evidence of meningitis or encephalitis on exam. Medical Decision & Procedures ER Provider Diagnostic Interpretation: X-ray results as stated below per interpretation by me and the radiologist: CHEST ONE VIEW PORTABLE FINDINGS: The bones soft tissues and hemidiaphragms are normal. The cardiomediastinal silhouette is normal. The lungs are clear. The pulmonary vasculature is normal. IMPRESSION: Negative chest. The above report was generated using voice recognition software. It may contain grammatical, syntax or spelling errors. Electronically signed by: Will Woodward M.D. 12/08/2016 8:22 PM Dictated Date/Time: 12/08/2016 8:22 PM Laboratory Results 12/08/16 20:50 Red Blood Count 4.17, Mean Corpuscular Volume 64.5, Mean Corpuscular Hemoglobin 18.5, Mean Corpuscular Hemoglobin Concent 28.6, Neutrophils (%) (Auto) 76.4, Lymphocytes (%) (Auto) 11.9, Monocytes (%) (Auto) 8.4, Eosinophils (%) (Auto) 2.7, Basophils (%) (Auto) 0.3, Neutrophils # (Auto) 2.84, Lymphocytes # (Auto) 0.44, Monocytes # (Auto) 0.31, Eosinophils # (Auto) 0.10, Basophils # (Auto) 0.01 12/08/16 20:50 Test 12/08/16 20:37 12/08/16 20:50 12/08/16 21:10 Influenza Type A (RT-PCR) Neg for Influ A (NEG) Influenza Type A Antigen Neg for Influ A (NEG) Influenza Type B Antigen Neg for Influ B (NEG) Influenza Type B (RT-PCR) Neg for Influ B (NEG) White Blood Count 3.71 K/uL (4.8-10.8) Red Blood Count 4.17 M/uL (4.2-5.4) Hemoglobin 7.7 g/dL (12.0-16.0) Hematocrit 26.9 % (37-47) Mean Corpuscular Volume 64.5 fL (80-100) Mean Corpuscular Hemoglobin 18.5 pg (25-34) Mean Corpuscular Hemoglobin Concent 28.6 g/dl (32-36) Platelet Count 93 K/uL (130-400) Neutrophils (%) (Auto) 76.4 % Lymphocytes (%) (Auto) 11.9 % Monocytes (%) (Auto) 8.4 % Eosinophils (%) (Auto) 2.7 % Basophils (%) (Auto) 0.3 % Neutrophils # (Auto) 2.84 K/uL (1.4-6.5) Lymphocytes # (Auto) 0.44 K/uL (1.2-3.4) Monocytes # (Auto) 0.31 K/uL (0.11-0.59) Eosinophils # (Auto) 0.10 K/uL (0-0.5) Basophils # (Auto) 0.01 K/uL (0-0.2) RDW Standard Deviation 40.5 fL (36.4-46.3) RDW Coefficient of Variation 17.3 % (11.5-14.5) Immature Granulocyte % (Auto) 0.3 % Immature Granulocyte # (Auto) 0.01 K/uL (0.00-0.02) Platelet Estimate DECREASED Microcytosis PRESENT Anion Gap 7.0 mmol/L (3-11) Est Creatinine Clear Calc Drug Dose 107.7 ml/min Estimated GFR () 135.6 Estimated GFR (Non- 117.0 BUN/Creatinine Ratio 21.7 (10-20) Calcium Level 9.1 mg/dl (8.5-10.1) Total Bilirubin 0.6 mg/dl (0.2-1) Direct Bilirubin 0.2 mg/dl (0-0.2) Aspartate Amino Transf (AST/SGOT) 11 U/L (15-37) Alanine Aminotransferase (ALT/SGPT) 12 U/L (12-78) Alkaline Phosphatase 58 U/L (45-117) Total Protein 7.3 gm/dl (6.4-8.2) Albumin 3.9 gm/dl (3.4-5.0) Urine Color DK YELLOW Urine Appearance CLEAR (CLEAR) Urine pH 6.5 (4.5-7.5) Urine Specific Miles 1.022 (1.000-1.030) Urine Protein NEG (NEG) Urine Glucose (UA) NEG (NEG) Urine Ketones NEG (NEG) Urine Occult Blood 1+ (NEG) Urine Nitrite NEG (NEG) Urine Bilirubin NEG (NEG) Urine Urobilinogen POS (NEG) Urine Leukocyte Esterase NEG (NEG) Urine WBC (Auto) 1-5 /hpf (0-5) Urine RBC (Auto) 10-30 /hpf (0-4) Urine Hyaline Casts (Auto) 1-5 /lpf (0-5) Urine Epithelial Cells (Auto) >30 /lpf (0-5) Urine Bacteria (Auto) NEG (NEG) Labs reviewed by ED physician. Medications Administered Medications (Trade) Dose Ordered Sig/Shoaib Route Start Time Stop Time Status Last Admin Dose Admin Ketorolac Tromethamine (Toradol Inj) 30 mg NOW STAT IV 12/08/16 20:00 12/08/16 20:03 DC 12/08/16 21:02 30 MG Prochlorperazine Edisylate (Compazine Inj) 5 mg NOW STAT IV 12/08/16 20:00 12/08/16 20:03 DC 12/08/16 21:01 5 MG Diphenhydramine HCl (Benadryl Inj) 50 mg NOW STAT IV 12/08/16 20:00 12/08/16 20:03 DC 12/08/16 21:01 50 MG Sodium Chloride 1,000 ml @ 999 mls/hr Q1H1M STAT IV 12/08/16 20:00 12/08/16 21:00 DC 12/08/16 21:01 999 MLS/HR Azithromycin (Zithromax Tab) 500 mg NOW STAT PO 12/08/16 20:00 12/08/16 20:03 DC 12/08/16 21:02 500 MG ED Course 1939: Past medical records reviewed. The patient was evaluated in room B12B. A complete history and physical examination was performed. 1948: I offered to do a lumbar puncture on the patient but she refused. 1999: Azithromycin 500mg PO, Sodium Chloride 1000 ml @ 999 mls/hr IV, Benadryl Inj 50mg IV, Compazine Inj 5mg IV, Toradol Inj 30mg IV. 2146: The patient refused a rectal exam and knows about her anemia. 2151: Upon reexamination the patient is doing well. I discussed results and treatment plan with the patient. She verbalizes agreement and understanding. The patient is ready for discharge. Medical Decision Differential diagnosis: Etiologies such as viral syndrome, otitis, pharyngitis, pneumonia, influenza, meningitis, urinary tract infection, sepsis, bacteremia, as well as others were entertained. This is a 36-year-old female who presents emergency department complaining of headache as well as body aches after receiving the flu shot today. I will note that the patient has chronically anemic. The patient's hemoglobin is 7 and this appears to be stable. She refused a rectal exam in the emergency department. I strongly recommended that the patient follow-up with her primary care physician for her anemia. The patient meanwhile has no evidence of meningitis encephalitis on examination. She was given Toradol Compazine and Benadryl for headache. Repeat examination revealed improvement the patient's symptoms. I do feel that the patient as well as to be discharged home for follow-up with the primary care physician. Patient was in agreement with the treatment plan. Medication Reconcilliation Current Medication List: was personally reviewed by me Blood Pressure Screening Patient's blood pressure: Normal blood pressure Blood pressure disposition: Did not require urgent referral Impression Primary Impression: Headache Additional Impression: URI (upper respiratory infection) Scribe Attestation The scribe's documentation has been prepared under my direction and personally reviewed by me in its entirety. I confirm that the note above accurately reflects all work, treatment, procedures, and medical decision making performed by me. Departure Information Dispostion Home / Self-Care Prescriptions Azithromycin (Zithromax) 250 Mg Tab 250 MG PO DAILY, #4 TAB Prov: Wagner Maki MD 12/08/16 Referrals No Doctor, Assigned (PCP) Forms HOME CARE DOCUMENTATION FORM, IMPORTANT VISIT INFORMATION Patient Instructions ED URI Viral, My [facility] Additional Instructions You have been examined and treated today on an emergency basis only. This is not a substitute for, or an effort to provide, complete comprehensive medical care. It is impossible to recognize and treat all injuries or illnesses in a single emergency department visit. It is therefore important that you follow up closely with your PCP. Call as soon as possible for an appointment. Thank you for your time and consideration. I look forward to speaking with you again soon. Please don't hesitate to call us if you have any questions. Problem Qualifiers Primary Impression: Headache Headache type: unspecified Headache chronicity pattern: unspecified pattern Intractability: not intractable Qualified Codes: R51 - Headache Additional Impression: URI (upper respiratory infection) URI type: unspecified URI Qualified Codes: J06.9 - Acute upper respiratory infection, unspecified
--- NOTE | 2016-12-08 20:24 | DIAGNOSTIC IMAGING REPORT ---
CHEST ONE VIEW PORTABLE CLINICAL HISTORY: Pt c/o SOB dyspnea COMPARISON STUDY: 06/27/2016 FINDINGS: The bones soft tissues and hemidiaphragms are normal. The cardiomediastinal silhouette is normal. The lungs are clear. The pulmonary vasculature is normal. IMPRESSION: Negative chest. The above report was generated using voice recognition software. It may contain grammatical, syntax or spelling errors. Electronically signed by: Will Woodward M.D. 12/08/2016 8:22 PM Dictated Date/Time: 12/08/2016 8:22 PM
[2016-12-08 20:37] VITALS: O2SAT 100
[2016-12-08 21:27] LABS: BUN/CREATININE RATIO 21.7 (10-20); CALCIUM 9.1 mg/dl (8.5-10.1); CREATININE 0.63 mg/dl (0.60-1.20); POTASSIUM 3.1 mmol/L (3.5-5.1)
[2016-12-08 21:29] LABS: HEMATOCRIT 26.9 % (37-47); MEAN CELL VOLUME 64.5 fL (80-100); MEAN CORPUSCULAR HEMOGLOBIN 18.5 pg (25-34); MEAN CORPUSCULAR HGB CONC 28.6 g/dl (32-36); PLATELET COUNT 93 K/uL (130-400); RED BLOOD COUNT 4.17 M/uL (4.2-5.4); WHITE BLOOD COUNT 3.71 K/uL (4.8-10.8)
[2016-12-08 21:30] LABS: BASO % 0.3 %; BASO ABS # 0.01 K/uL (0-0.2); COMPLETE YES; EOS % 2.7 %; IG% 0.3 %; LYMPH % 11.9 %; LYMPH ABS # 0.44 K/uL (1.2-3.4); MICROCYTOSIS PRESENT; MONO % 8.4 %; NEUT % 76.4 %; PLT ESTIMATE DECREASED
[2016-12-08] MEDS ORDERED: AZIT250T PO (21:50)
[2016-12-08 21:57] LABS: URINE APPEARANCE CLEAR (CLEAR); URINE BILIRUBIN NEG (NEG); URINE COLOR DK YELLOW; URINE EPITHELIAL CELL AUTO >30 /lpf (0-5); URINE NITRITE NEG (NEG); URINE PH 6.5 (4.5-7.5); URINE SPECIFIC GRAVITY 1.022 (1.000-1.030); UROBILINOGEN POS (NEG)
[2016-12-08 22:07] LABS: MANUAL MICROSCOPIC REQUIRED? NO; REVIEW REQ? NO
[2016-12-08 22:16] VITALS: BP 91/56; PULSE 95; O2SAT 99
[2016-12-08 23:00] LABS: INFLUENZA A PCR Neg for Influ A (NEG); INFLUENZA B PCR Neg for Influ B (NEG)
== END 2016-12-08 22:16 | disposition home or self-care (01) ==
LOC: C.EDB 18:50
DX: R51 Headache (principal); J06.9 Acute upper respiratory infection, unspecified; F17.200 Nicotine dependence, unspecified, uncomplicated; Z83.3 Family history of diabetes mellitus

== ENCOUNTER 2017-03-09 22:22 | Emergency (ER) | payer OTHER ==
[~2017-03-09] VITALS: Ht 165.1 cm; Wt 56.1 kg
[~2017-03-09 22:22] MED LIST changes: +AZIT250T PO
[2017-03-09 22:26] VITALS: TEMP 37.2; Ht 165.1 cm; Wt 56.1 kg
[2017-03-09] MEDS ORDERED: ACET-1256 PO (22:51)
[2017-03-09] MEDS ORDERED: KETOROLAC TROMETHAMINE 30 MG/ML VIAL IV STA (22:52)
[2017-03-09] MEDS ORDERED: ONDANSETRON INJ 2 MG/ML 2 ML VIAL IV STA (22:52)
[2017-03-09] MEDS ORDERED: SODIUM CHLORIDE 0.9% 1000ML 1,000 ML IV ONE (23:00)
[2017-03-09] MEDS ORDERED: ACETAMINOPHEN IV 100 ML IV ONE (23:00)
[2017-03-09] MEDS ORDERED: OPTIRAY 320 IV PRN (23:00)
[2017-03-09 23:11] LABS: URINE APPEARANCE CLEAR (CLEAR); URINE BILIRUBIN NEG (NEG); URINE COLOR YELLOW; URINE NITRITE NEG (NEG); URINE SPECIFIC GRAVITY 1.011 (1.000-1.030); UROBILINOGEN NEG (NEG); ZZUR CULT IF INDIC CLEAN CATCH NO
[2017-03-09 23:16] LABS: MANUAL MICROSCOPIC REQUIRED? NO; REVIEW REQ? NO
[2017-03-09 23:21] LABS: BUN/CREATININE RATIO 23.2 (10-20); CALCIUM 9.2 mg/dl (8.5-10.1); CREATININE 0.62 mg/dl (0.60-1.20); POTASSIUM 3.1 mmol/L (3.5-5.1)
[2017-03-09 23:24] LABS: ALB/GLOB RATIO 1.5 (0.9-2)
[2017-03-09 23:25] LABS: HEMATOCRIT 29.5 % (37-47); MEAN CELL VOLUME 64.8 fL (80-100); MEAN CORPUSCULAR HEMOGLOBIN 18.5 pg (25-34); MEAN CORPUSCULAR HGB CONC 28.5 g/dl (32-36); PLATELET COUNT 151 K/uL (130-400); RED BLOOD COUNT 4.55 M/uL (4.2-5.4); WHITE BLOOD COUNT 9.56 K/uL (4.8-10.8)
[2017-03-09 23:26] LABS: BASO % 0.2 %; BASO ABS # 0.02 K/uL (0-0.2); COMPLETE YES; EOS % 0.9 %; HYPOCHROMIA PRESENT; IG% 0.3 %; LYMPH % 11.9 %; LYMPH ABS # 1.14 K/uL (1.2-3.4); MICROCYTOSIS PRESENT; MONO % 4.5 %; NEUT % 82.2 %; PLT ESTIMATE NORMAL
[2017-03-09 23:36] LABS: BENZODIAZEPINE, URINE NEG (NEG); COCAINE,URINE NEG (NEG); PHENCYCLIDINE, URINE NEG (NEG)
[2017-03-10 03:03] VITALS: BP 131/78; PULSE 87; O2SAT 99
--- NOTE | 2017-03-10 07:12 | EMERGENCY ROOM VISIT NOTE ---
History First contact with patient: 22:44 Chief Complaint: ABDOMINAL PAIN Stated Complaint: SEVERE LOWER ABD PAIN Nursing Triage Summary: Pt reports lower abd pain that began yesterday morning, worse today. Denies n/v/d. Denies urinary s/sx or back pain. Hx of ovarian cyst. History of Present Illness The patient is a 36 year old female who presents to the Emergency Room with complaints of severe lower abdominal pain worsening over the past one day. The patient is not having nausea, vomiting, or diarrhea. No chest pain or shortness of breath. She is using the bathroom is normal and is without dysuria or back pain. She does have a history of ovarian cysts and tubal ligation. Because of this she denies chance of . The patient rates her pain a 10/10 and has not taken anything today for her discomfort. No additional abdominal surgeries. The pain does not radiate. Review of Systems More than 10 systems were reviewed and otherwise negative with the exception of history of present illness. Past Medical/Surgical History Medical Problems: (1) IUGR (2) Migraine (3) R/O labor (4) Vaginal delivery Family History Cancer Diabetes mellitus Hypertension Social History Smoking Status: Current Every Day Smoker Alcohol Use: none Drug Use: none Marital Status: , in relationship Housing Status: lives with family, lives with significant other Occupation Status: employed Current/Historical Medications Scheduled Acetaminophen (Tylenol), 1,000 MG PO Q6 Scheduled PRN Ibuprofen (Advil), 200-600 MG PO Q4H PRN for Pain or Fever Physical Exam Vital Signs Date Time Temp Pulse Resp B/P (MAP) Pulse Ox O2 Delivery O2 Flow Rate FiO2 03/10/17 03:03 87 18 131/78 99 03/10/17 01:55 96 18 100/60 99 Room Air 03/09/17 23:49 92 18 121/73 100 Room Air 03/09/17 22:26 37.2 118 20 136/90 100 Room Air Physical Exam VITALS: Vitals are noted on the nurse's note and reviewed by myself. Vital signs stable. GENERAL: Well-developed, well-nourished, white female, who is in no acute distress and resting comfortably. Patient is cooperative with the examination. HEAD: Normocephalic atraumatic. HEART: Regular rate and rhythm without murmurs gallops or rubs. LUNGS: Clear to auscultation bilaterally without wheezes, rales or rhonchi. No retractions or accessory muscle use. ABDOMEN: Positive normal bowel sounds x 4. Soft with positive lower abdominal tenderness worse in the suprapubic region. No CVA tenderness. No other significant palpable tenderness. No rebound or guarding. MUSCULOSKELETAL: No muscle atrophy, erythema, or edema noted. Full range of motion without joint tenderness in all extremities. Medical Decision & Procedures ER Provider Diagnostic Interpretation: Preliminary Findings Only See Final Report For Complete Findings CT ABDOMEN & PELVIS With Contrast: Compared to 05/13/16 Normal appendix. No GI or urinary tract obstruction. Small hiatal hernia. Small fatty umbilical hernia. Preliminary Findings Only See Final Report For Complete Findings US PELVIC/ENDOVA.6 cm hyperechoic lesion in the left ovary most likely reflects a complex cyst. No sonographic findings of torsion. Unremarkable right ovary. Trace fluid in the endometrial canal. Uterus is otherwise unremarkable. Laboratory Results 03/09/17 22:45 Red Blood Count 4.55, Mean Corpuscular Volume 64.8, Mean Corpuscular Hemoglobin 18.5, Mean Corpuscular Hemoglobin Concent 28.5, Neutrophils (%) (Auto) 82.2, Lymphocytes (%) (Auto) 11.9, Monocytes (%) (Auto) 4.5, Eosinophils (%) (Auto) 0.9, Basophils (%) (Auto) 0.2, Neutrophils # (Auto) 7.85, Lymphocytes # (Auto) 1.14, Monocytes # (Auto) 0.43, Eosinophils # (Auto) 0.09, Basophils # (Auto) 0.02 03/09/17 22:45 Test 03/09/17 22:40 03/09/17 22:45 Urine Color YELLOW Urine Appearance CLEAR (CLEAR) Urine pH 7.0 (4.5-7.5) Urine Specific [place] 1.011 (1.000-1.030) Urine Protein NEG (NEG) Urine Glucose (UA) NEG (NEG) Urine Ketones NEG (NEG) Urine Occult Blood NEG (NEG) Urine Nitrite NEG (NEG) Urine Bilirubin NEG (NEG) Urine Urobilinogen NEG (NEG) Urine Leukocyte Esterase NEG (NEG) Urine Test NEG (NEG) Urine Opiates Screen NEG (NEG) Urine Methadone, Qualitative NEG (NEG) Urine Barbiturates NEG (NEG) Urine Phencyclidine (PCP) Level NEG (NEG) Ur Amphetamine/Methamphetamine NEG (NEG) MDMA (Ecstasy) Screen NEG (NEG) Urine Benzodiazepines Screen NEG (NEG) Urine Cocaine Metabolite NEG (NEG) Urine Marijuana (THC) NEG (NEG) White Blood Count 9.56 K/uL (4.8-10.8) Red Blood Count 4.55 M/uL (4.2-5.4) Hemoglobin 8.4 g/dL (12.0-16.0) Hematocrit 29.5 % (37-47) Mean Corpuscular Volume 64.8 fL (80-100) Mean Corpuscular Hemoglobin 18.5 pg (25-34) Mean Corpuscular Hemoglobin Concent 28.5 g/dl (32-36) Platelet Count 151 K/uL (130-400) Neutrophils (%) (Auto) 82.2 % Lymphocytes (%) (Auto) 11.9 % Monocytes (%) (Auto) 4.5 % Eosinophils (%) (Auto) 0.9 % Basophils (%) (Auto) 0.2 % Neutrophils # (Auto) 7.85 K/uL (1.4-6.5) Lymphocytes # (Auto) 1.14 K/uL (1.2-3.4) Monocytes # (Auto) 0.43 K/uL (0.11-0.59) Eosinophils # (Auto) 0.09 K/uL (0-0.5) Basophils # (Auto) 0.02 K/uL (0-0.2) RDW Standard Deviation 40.7 fL (36.4-46.3) RDW Coefficient of Variation 17.3 % (11.5-14.5) Immature Granulocyte % (Auto) 0.3 % Immature Granulocyte # (Auto) 0.03 K/uL (0.00-0.02) Platelet Estimate NORMAL Hypochromasia PRESENT Microcytosis PRESENT Anion Gap 8.0 mmol/L (3-11) Est Creatinine Clear Calc Drug Dose 113.2 ml/min Estimated GFR () 136.4 Estimated GFR (Non- 117.6 BUN/Creatinine Ratio 23.2 (10-20) Calcium Level 9.2 mg/dl (8.5-10.1) Total Bilirubin 0.3 mg/dl (0.2-1) Aspartate Amino Transf (AST/SGOT) 10 U/L (15-37) Alanine Aminotransferase (ALT/SGPT) 15 U/L (12-78) Alkaline Phosphatase 51 U/L (45-117) Total Protein 7.8 gm/dl (6.4-8.2) Albumin 4.7 gm/dl (3.4-5.0) Globulin 3.1 gm/dl (2.5-4.0) Albumin/Globulin Ratio 1.5 (0.9-2) Lipase 119 U/L (73-393) Medications Administered Medications (Trade) Dose Ordered Sig/Shoaib Route Start Time Stop Time Status Last Admin Dose Admin Sodium Chloride 1,000 ml @ 999 mls/hr Q1H1M ONCE IV 03/09/17 23:00 03/10/17 00:00 DC 03/09/17 23:00 999 MLS/HR Acetaminophen 100 ml @ 400 mls/hr NOW ONCE IV 03/09/17 23:00 03/09/17 23:14 DC 03/09/17 23:00 400 MLS/HR Ketorolac Tromethamine (Toradol Inj) 15 mg NOW STAT IV 03/09/17 22:52 03/09/17 22:54 DC 03/09/17 22:59 15 MG Ondansetron HCl (Zofran Inj) 4 mg NOW STAT IV 03/09/17 22:52 03/09/17 22:55 DC 03/09/17 22:59 4 MG ED Course Physical exam and history were performed. Nursing notes, EMR, and Medication List were personally reviewed. Patient appears to have lower abdominal pain for the past one day. She does have some reproducible tenderness in the very low abdomen. She does not appear toxic. IV access was established and labs were obtained. Ultrasound and CT were performed. The patient was hydrated and medicated as above. The patient does not have a significantly elevated white blood cell count or bandemia. is negative. She does not appear to have UTI. She is anemic, however this appears chronic, and she is above her normal baseline. Lipase and transaminases were not diagnostic. Ultrasound does reveal an ovarian cyst as described above. CT scan does not show a surgical process. On reevaluation the patient was found to be sleeping comfortably in her ER bed. She was awoken, and I had a lengthy discussion regarding her findings today. I suspect much of her discomfort is from the ovarian cyst, and she'll be treated conservatively with ibuprofen and Tylenol [id number]. The patient will need to follow with [employer] for ongoing care and evaluation. She was otherwise invited back to the ER with any new, worsening, or concerning symptoms. The chart was completed utilizing [employer] Speech Voice Recognition Software. Grammatical errors, random word insertions, pronoun errors, and incomplete sentences are an occasional consequence of this system due to software limitations, ambient noise, and hardware issues. Any formal questions or concerns about the content, text, or information contained within the body of this dictation should be directly addressed to the provider for clarification. . Medical Decision Differential diagnosis: Etiologies such as [employer] etiology, STD, appendicitis, diverticulitis, PUD, biliary pathology, UTI, pancreatitis, obstruction, mesenteric ischemia, aortic pathology, infections, inflammatory bowel disease, renal colic, as well as others were entertained. Impression Primary Impression: Left ovarian cyst Departure Information Dispostion Home / Self-Care Condition GOOD Forms Call Back Authorization, HOME CARE DOCUMENTATION FORM, Work Instructions, Additional Instructions: Patient was seen and evaluated today in the emergency department fo medical care. Return to work on 03/11/2017. Please excuse. IMPORTANT VISIT INFORMATION Patient Instructions [facility] Additional Instructions You were seen and evaluated today on an emergency basis only. This is not a substitute for, or an effort to provide, complete comprehensive medical care. It is not possible to recognize and treat all injuries or illnesses in a single emergency department visit. For this reason it is recommended that you followup with your [employer] for ongoing care and evaluation. For baseline pain relief you may alternate ibuprofen and acetaminophen every 4 hours for pain control. Take 600 mg ibuprofen (Advil) and then 4 hours later take 1000 mg acetaminophen (Tylenol). Do not take more than 3000 mg acetaminophen in a single day. You are welcome to return to the emergency department anytime with new, worsening, or concerning symptoms. Work Instructions Additional Work Instructions: Patient was seen and evaluated today in the emergency department for medical care. Return to work on 03/11/2017. Please excuse.
--- NOTE | 2017-03-10 07:13 | DIAGNOSTIC IMAGING REPORT ---
ULTRASOUND OF THE PELVIS CLINICAL HISTORY: Pelvic pain. COMPARISON STUDY: CT scan of the pelvis dated 05/13/2016. TECHNIQUE: Real-time, grayscale, and color flow sonography of the pelvis is performed both transabdominally and endovaginally. Images are reviewed in the transverse and longitudinal planes. FINDINGS: Uterus: The uterus is normal in size and echotexture, measuring 7.5 x 4.9 x 5.9 cm. Endometrium: The endometrium is normal in appearance, and the endometrial stripe is normal in thickness measuring up to 0.9 cm. Trace fluid is noted within the endometrial canal. Ovaries: The ovaries are normal in size and morphology. The right ovary measures 2.8 x 2.3 x 2.1 cm and the left ovary measures 4.1 x 2.4 x 3.0 cm. A 2.7 cm echogenic structure is identified in the left ovary, likely representing a hemorrhagic follicle. Additional follicles are seen bilaterally. Normal Doppler waveforms are shown within both ovaries. Pelvis: There is no free fluid in the cul-de-sac. No concerning adnexal lesion is seen. IMPRESSION: 1. No acute sonographic abnormality is identified in the pelvis. 2. A 2.6 cm hyperechoic lesion the left ovary likely represents a complex/hemorrhagic cyst. Electronically signed by: Syed Thurman M.D. 03/10/2017 7:11 AM Dictated Date/Time: 03/10/2017 7:09 AM
--- NOTE | 2017-03-10 07:24 | DIAGNOSTIC IMAGING REPORT ---
ABD/PELVIS IV AND ORAL CONT CT DOSE: 257.78 mGy.cm HISTORY: Pain Low abd pain TECHNIQUE: Multiaxial CT images of the abdomen and pelvis were performed following the use of intravenous and oral contrast. A dose lowering technique was utilized adhering to the principles of ALARA. COMPARISON STUDY: 05/13/2016 FINDINGS: The lung bases are clear. The liver, spleen, gallbladder, pancreas, kidneys, and adrenal glands are within normal limits. No bowel wall thickening or obstruction. The pelvic organs are unremarkable. No suspicious lytic or blastic osseous lesions. Nonobstructive bowel pattern. Bladder is midline. No free fluid within the pelvic cul-de-sac. Normal appendix IMPRESSION: No acute process. No change from the prior exam. The above report was generated using voice recognition software. It may contain grammatical, syntax or spelling errors. Electronically signed by: Will Woodward M.D. 03/10/2017 7:22 AM Dictated Date/Time: 03/10/2017 7:20 AM
== END 2017-03-10 03:15 | disposition home or self-care (01) ==
LOC: C.EDB 22:23 → C.EDC 03-10 03:15
DX: N83.202 Unspecified ovarian cyst, left side (principal); F17.210 Nicotine dependence, cigarettes, uncomplicated; Z80.9 Family history of malignant neoplasm, unspecified; Z83.3 Family history of diabetes mellitus; Z82.49 Family history of ischemic heart disease and other diseases of the circulatory system

== ENCOUNTER 2017-06-07 19:35 | Emergency (ER) | payer OTHER ==
[~2017-06-07] VITALS: Ht 165.1 cm; Wt 54.3 kg
[~2017-06-07 19:35] MED LIST changes: -AZIT250T PO; -FERR1TAB23 PO; -NAPR1TAB9 PO
[2017-06-07 19:41] VITALS: TEMP 36.9; Ht 165.1 cm; Wt 54.3 kg
[2017-06-07] MEDS ORDERED: FERR325T5 PO (21:42)
[2017-06-07] MEDS ORDERED: ALBUT/IPRATROP 3MG/0.5MG NEB 3 ML VIAL INH STA (21:42)
[2017-06-07] MEDS ORDERED: KETOROLAC TROMETHAMINE 30 MG/ML VIAL IV STA (21:42)
[2017-06-07] MEDS ORDERED: SODIUM CHLORIDE 0.9% 1000ML 2,000 ML IV STA (21:42)
[2017-06-07] MEDS ORDERED: SODIUM CHLORIDE 0.65% NA SOLN 45 ML (OCEAN) ONE (21:45)
[2017-06-07] MEDS ORDERED: ACETAMINOPHEN 325 MG TAB PO STA (21:59)
--- NOTE | 2017-06-07 22:08 | DIAGNOSTIC IMAGING REPORT ---
CHEST ONE VIEW PORTABLE CLINICAL HISTORY: Fever. Abdominal pain. COMPARISON STUDY: Chest radiograph December 08, 2016. FINDINGS: Patient is rotated. Lung volumes are normal. There is no consolidation or evidence for pulmonary edema. Cardiomediastinal silhouette is unremarkable. There is no pneumothorax or pleural effusion. IMPRESSION: No acute cardiopulmonary findings. Electronically signed by: Singh Blackburn M.D. 06/07/2017 10:06 PM Dictated Date/Time: 06/07/2017 10:06 PM
[2017-06-07 22:17] LABS: ALBUMIN 3.9 gm/dl (3.4-5.0); BLOOD UREA NITROGEN 5 mg/dl (7-18); CALCIUM 8.8 mg/dl (8.5-10.1); CARBON DIOXIDE 25 mmol/L (21-32); CREATININE 0.61 mg/dl (0.60-1.20); GLUCOSE 97 mg/dl (70-99); LIPASE 76 U/L (73-393); POTASSIUM 2.9 mmol/L (3.5-5.1); SODIUM 135 mmol/L (136-145)
[2017-06-07 22:20] LABS: ALKALINE PHOSPHATASE 53 U/L (45-117); ALT/SGPT 18 U/L (12-78); AST/SGOT 13 U/L (15-37); TOTAL PROTEIN 7.4 gm/dl (6.4-8.2)
[2017-06-07 22:26] LABS: INFLUENZA A PCR Neg for Influ A (NEG); INFLUENZA B PCR Neg for Influ B (NEG)
[2017-06-07] MEDS ORDERED: ACET-1256 PO (22:51)
[2017-06-07 23:14] LABS: HEMATOCRIT 26.9 % (37-47); HEMOGLOBIN 7.6 g/dL (12.0-16.0); MEAN CELL VOLUME 64.4 fL (80-100); MEAN CORPUSCULAR HEMOGLOBIN 18.2 pg (25-34); MEAN CORPUSCULAR HGB CONC 28.3 g/dl (32-36); PLATELET COUNT 119 K/uL (130-400); RED CELL DISTRIBUTION WIDTH CV 18.4 % (11.5-14.5); RED CELL DISTRIBUTION WIDTH SD 42.4 fL (36.4-46.3); WHITE BLOOD COUNT 4.46 K/uL (4.8-10.8)
[2017-06-07 23:15] LABS: BASO % 0.2 %; BASO ABS # 0.01 K/uL (0-0.2); EOS % 0.4 %; EOS ABS # 0.02 K/uL (0-0.5); IG# 0.02 K/uL (0.00-0.02); LYMPH % 16.4 %; LYMPH ABS # 0.73 K/uL (1.2-3.4); MONO % 9.9 %; MONO ABS # 0.44 K/uL (0.11-0.59); NEUT % 72.7 %; NEUT ABS # 3.24 K/uL (1.4-6.5)
[2017-06-08] MEDS ORDERED: AZITHROMYCIN 250 MG TAB PO STA (00:47)
[2017-06-08] MEDS ORDERED: CEFTRIAXONE SOD 350MG/ML 1 GM VIAL IM STA (00:47)
[2017-06-08 01:06] VITALS: BP 122/69; PULSE 104; O2SAT 100
[2017-06-08] MEDS ORDERED: VALA1TAB31 PO (01:07)
[2017-06-08] MEDS ORDERED: ALBUTEROL HFA 8 GM INHALER INH STA (01:11)
--- NOTE | 2017-06-08 01:11 | EMERGENCY ROOM VISIT NOTE ---
History Report prepared by Cedrick: Aniyah Quiles Under the Supervision of: Dr. Dakota Melchor M.D. First contact with patient: 21:25 Chief Complaint: FLU LIKE SX Stated Complaint: FEVER,CHILLS,SWEATS,WHOLE BODY HURTS History of Present Illness The patient is a 36 year old female who presents to the Emergency Room with complaints of worsening flu symptoms starting 5 days ago. She has had body aches , fever, and chills. She was seen at [place] yesterday and was negative for the flu. She feels worse today. She last took Tylenol at 1200 for a fever of 99.9. She has had a dry cough. She has had some burning with urination. She notes bumps on her vagina. She has had a decreased appetite and reports that she has not eaten in a couple days. She denies any congestion, nausea, vomiting , diarrhea, vaginal burning or discharge. She smokes 0.5 ppd. Source of History: patient Onset: 5 days ago Position: other (global) Quality: other (flu symptoms) Timing: worsening Associated Symptoms: + fevers, + chills, + cough, + urinary symptoms, No nausea, No vomiting, No diarrhea Note: Pt reports body aches, decreased appetite. Review of Systems See HPI for pertinent positives and negatives. A total of ten systems were reviewed and were otherwise negative. Past Medical & Surgical Medical Problems: (1) IUGR (2) Migraine (3) R/O labor (4) Vaginal delivery Family History Cancer Diabetes mellitus Hypertension Social History Smoking Status: Current Every Day Smoker Marital Status: in relationship Housing Status: lives with significant other Current/Historical Medications Scheduled Ferrous Sulfate (Ferrous Sulfate), 325 MG PO BID Valacyclovir Hcl (Valtrex), 1 GM PO BID Scheduled PRN Acetaminophen (Tylenol), 1,000 MG PO Q6H PRN for Pain or Fever Ibuprofen (Advil), 200-600 MG PO Q4H PRN for Pain or Fever Allergies Coded Allergies: Penicillins (Verified Allergy, Severe, HIVES-SOB, 12/08/16) Physical Exam Vital Signs Date Time Temp Pulse Resp B/P (MAP) Pulse Ox O2 Delivery O2 Flow Rate FiO2 06/08/17 01:06 104 18 122/69 100 Room Air 06/07/17 23:38 104 18 112/71 100 Room Air 06/07/17 22:32 109 18 118/66 100 Room Air 06/07/17 19:41 36.9 115 20 126/77 100 Room Air Physical Exam GENERAL: Awake, alert, fatigued-appearing, in no distress HENT: Normocephalic, atraumatic. Dry mucous membranes. EYES: Normal conjunctiva. Sclera non-icteric. NECK: Supple. No nuchal rigidity. FROM. No JVD. RESPIRATORY: Clear to auscultation. CARDIAC: Regular rate, normal rhythm. Extremities warm and well perfused. Pulses equal. ABDOMEN: Soft, non-distended. No tenderness to palpation. No rebound or guarding. No masses. RECTAL: No hemorrhoids, no stool, melena, or blood. PELVIS: Small isolated vesicles in the labia as well as the cervix, whitish yellowish discharge, no CMT, no adnexal tenderness. MUSCULOSKELETAL: Chest examination reveals no tenderness. The back is symmetrical on inspection without obvious abnormality. There is no CVA tenderness to palpation. No joint edema. LOWER EXTREMITIES: Calves are equal size bilaterally and non-tender. No edema. No discoloration. NEURO: Normal sensorium. No sensory or motor deficits noted. SKIN: No rash or jaundice noted. Medical Decision & Procedures ER Provider Diagnostic Interpretation: Xray results as stated below per my and radiologist interpretation: CHEST ONE VIEW PORTABLE CLINICAL HISTORY: Fever. Abdominal pain. COMPARISON STUDY: Chest radiograph December 08, 2016. FINDINGS: Patient is rotated. Lung volumes are normal. There is no consolidation or evidence for pulmonary edema. Cardiomediastinal silhouette is unremarkable. There is no pneumothorax or pleural effusion. IMPRESSION: No acute cardiopulmonary findings. Electronically signed by: Singh Blackburn M.D. 06/07/2017 10:06 PM Dictated Date/Time: 06/07/2017 10:06 PM Laboratory Results 06/07/17 21:45 Red Blood Count 4.18, Mean Corpuscular Volume 64.4, Mean Corpuscular Hemoglobin 18.2, Mean Corpuscular Hemoglobin Concent 28.3, Neutrophils (%) (Auto) 72.7, Lymphocytes (%) (Auto) 16.4, Monocytes (%) (Auto) 9.9, Eosinophils (%) (Auto) 0.4, Basophils (%) (Auto) 0.2, Neutrophils # (Auto) 3.24, Lymphocytes # (Auto) 0.73, Monocytes # (Auto) 0.44, Eosinophils # (Auto) 0.02, Basophils # (Auto) 0.01 06/07/17 21:45 Test 06/07/17 21:35 06/07/17 21:45 06/07/17 23:30 Urine Color YELLOW Urine Appearance CLEAR (CLEAR) Urine pH 8.0 (4.5-7.5) Urine Specific [place] 1.014 (1.000-1.030) Urine Protein NEG (NEG) Urine Glucose (UA) NEG (NEG) Urine Ketones NEG (NEG) Urine Occult Blood NEG (NEG) Urine Nitrite NEG (NEG) Urine Bilirubin NEG (NEG) Urine Urobilinogen NEG (NEG) Urine Leukocyte Esterase TRACE (NEG) Urine WBC (Auto) 1-5 /hpf (0-5) Urine RBC (Auto) 5-10 /hpf (0-4) Urine Hyaline Casts (Auto) 1-5 /lpf (0-5) Urine Epithelial Cells (Auto) 20-30 /lpf (0-5) Urine Bacteria (Auto) NEG (NEG) Influenza Type A (RT-PCR) Neg for Influ A (NEG) Influenza Type B (RT-PCR) Neg for Influ B (NEG) White Blood Count 4.46 K/uL (4.8-10.8) Red Blood Count 4.18 M/uL (4.2-5.4) Hemoglobin 7.6 g/dL (12.0-16.0) Hematocrit 26.9 % (37-47) Mean Corpuscular Volume 64.4 fL (80-100) Mean Corpuscular Hemoglobin 18.2 pg (25-34) Mean Corpuscular Hemoglobin Concent 28.3 g/dl (32-36) Platelet Count 119 K/uL (130-400) Neutrophils (%) (Auto) 72.7 % Lymphocytes (%) (Auto) 16.4 % Monocytes (%) (Auto) 9.9 % Eosinophils (%) (Auto) 0.4 % Basophils (%) (Auto) 0.2 % Neutrophils # (Auto) 3.24 K/uL (1.4-6.5) Lymphocytes # (Auto) 0.73 K/uL (1.2-3.4) Monocytes # (Auto) 0.44 K/uL (0.11-0.59) Eosinophils # (Auto) 0.02 K/uL (0-0.5) Basophils # (Auto) 0.01 K/uL (0-0.2) RDW Standard Deviation 42.4 fL (36.4-46.3) RDW Coefficient of Variation 18.4 % (11.5-14.5) Immature Granulocyte % (Auto) 0.4 % Immature Granulocyte # (Auto) 0.02 K/uL (0.00-0.02) Platelet Estimate DECREASED Large Platelets 2+ Microcytosis PRESENT Prothrombin Time 10.7 SECONDS (9.0-12.0) Prothromb Time International Ratio 1.0 (0.9-1.1) Anion Gap 8.0 mmol/L (3-11) Est Creatinine Clear Calc Drug Dose 111.4 ml/min Estimated GFR () 137.1 Estimated GFR (Non- 118.3 BUN/Creatinine Ratio 8.1 (10-20) Calcium Level 8.8 mg/dl (8.5-10.1) Total Bilirubin 0.4 mg/dl (0.2-1) Direct Bilirubin < 0.1 mg/dl (0-0.2) Aspartate Amino Transf (AST/SGOT) 13 U/L (15-37) Alanine Aminotransferase (ALT/SGPT) 18 U/L (12-78) Alkaline Phosphatase 53 U/L (45-117) Total Protein 7.4 gm/dl (6.4-8.2) Albumin 3.9 gm/dl (3.4-5.0) Lipase 76 U/L (73-393) Human Chorionic Gonadotropin, Qual NEG (NEG) Laboratory results reviewed by me Medications Administered Medications (Trade) Dose Ordered Sig/Shoaib Route Start Time Stop Time Status Last Admin Dose Admin Sodium Chloride 2,000 ml @ 999 mls/hr Q2H1M STAT IV 06/07/17 21:42 06/07/17 23:42 DC 06/07/17 21:56 999 MLS/HR Sodium Chloride (Desha Nasal [place]) 2 sprays NOW ONCE NA 06/07/17 21:45 06/07/17 21:46 DC 06/07/17 21:57 2 SPRAYS Albuterol/ Ipratropium (Duoneb) 3 ml NOW STAT INH 06/07/17 21:42 06/07/17 21:46 DC 06/07/17 21:56 3 ML Acetaminophen (Tylenol Tab) 650 mg NOW STAT PO 06/07/17 21:59 06/07/17 22:01 DC 06/07/17 22:22 650 MG Ceftriaxone Sodium (Rocephin Im) 250 mg NOW STAT IM 06/08/17 00:47 06/08/17 00:54 DC 06/08/17 01:01 250 MG Azithromycin (Zithromax Tab) 1,000 mg NOW STAT PO 06/08/17 00:47 06/08/17 00:54 DC 06/08/17 01:02 1,000 MG Valacyclovir HCl (Valtrex Tab) 1,000 mg NOW STAT PO 06/08/17 00:47 06/08/17 00:54 DC 06/08/17 01:01 1,000 MG Albuterol (Ventolin Hfa Inhaler) 2 puffs NOW STAT INH 06/08/17 01:11 06/08/17 01:12 DC 06/08/17 01:18 2 PUFFS ED Course 6: The patient was evaluated in room C6. A complete history and physical exam was performed. 0103: I reevaluated the patient. Discussed results and discharge instructions: She verbalized understanding and agreement. The patient is ready for discharge. Medical Decision I reviewed the patient's past medical history, medications, and the nursing notes as described above. Differential diagnosis: viral syndrome, influenza, pneumonia, bronchitis, UTI, STI, dehydration, electrolyte abnormality. The patient is a 36 y/o woman with a pmhx of iron deficiency anemia who presents to the emergency department with cough, congestion, f/c, fatigue for the past week per HPI. Of note, the patient was seen at [facility] ED last night for same sx but comes to ED again because of no improvement. w/u from [facility] reviewed and patient was Flu/RSV negative. Hbg 6.7 but in the setting of having run out of her iron supplements for several weeks. Patient reports her recent hbg has been in the "6 range". Labs today improved with Hbg of 7.6. Rectal exam without stool, melena, or bleeding. Flu negative. CXR negative. Pelvic exam demonstrates scattered vaginal and cervical vessicles c/w HSV. No CMT or adnexal ttp, Given risk factors we agree to treat empirically for GCC. Patient feeling improved after IVF and duoneb. Sx likley multi- factorial including viral URI as well as HSV vaginitis. Patient has pcp appointment in AM and will discuss referral for GI for endoscopy as well as [facility] for sx. Findings and plan for follow-up reviewed with patient. Patient agreeable and d/c'd per discharge instructions. Medication Reconcilliation Current Medication List: was personally reviewed by me Blood Pressure Screening Patient's blood pressure: Normal blood pressure Blood pressure disposition: Did not require urgent referral Impression Primary Impression: Viral upper respiratory illness Additional Impressions: Iron deficiency anemia Genital herpes Scribe Attestation The scribe's documentation has been prepared under my direction and personally reviewed by me in its entirety. I confirm that the note above accurately reflects all work, treatment, procedures, and medical decision making performed by me. Departure Information Dispostion Home / Self-Care Prescriptions Valacyclovir Hcl (VALTREX) 1 Gm Tab 1 GM PO BID for 10 Days, #20 TAB Prov: Dakota Melchor M.D. 06/08/17 Referrals No Doctor, Assigned (PCP) Patient Instructions ED Anemia Iron Deficiency, ED Upper Resp Infec No Abx Tx, Herpes, My [facility] Additional Instructions Please follow up with your primary care physician today for re-evaluation and to plan for repeat blood tests as well as for gynecology and gastroenterology referrals. You likely have a viral illness. You were also found to have vaginal findings consistent with herpes. You were treated for this with Valtrex and treat as well for possible gonorrhea and chlamydia while tests are pending. Otherwise, your exam and lab results did not show signs of an emergent condition at this time. Acetaminophen for pain and fevers as needed. Valtrex as directed. Albuterol inhaler 2 puffs every 4 hours for cough and wheezing as needed. Drink plenty of fluids to ensure hydration. Return to the emergency department for worsening symptoms as described in the accompanying instructions. Problem Qualifiers
== END 2017-06-08 01:23 | disposition home or self-care (01) ==
LOC: C.EDB 19:36 → C.EDC 06-08 01:23
DX: J06.9 Acute upper respiratory infection, unspecified (principal); D50.9 Iron deficiency anemia, unspecified; A60.09 Herpesviral infection of other urogenital tract; F17.210 Nicotine dependence, cigarettes, uncomplicated; Z83.3 Family history of diabetes mellitus; Z82.49 Family history of ischemic heart disease and other diseases of the circulatory system

== ENCOUNTER 2017-11-06 10:47 | Emergency (ER) | payer SELFPAY ==
[~2017-11-06] VITALS: Ht 165.1 cm; Wt 56.4 kg
[~2017-11-06 10:47] MED LIST changes: +ACET-1256 PO; +FERR325T5 PO
[2017-11-06 10:55] VITALS: TEMP 36.7; Ht 165.1 cm; Wt 56.4 kg
[2017-11-06] MEDS ORDERED: SODIUM CHLORIDE 0.9% 500ML 500 ML IV STA (11:21)
[2017-11-06 11:24] LABS: HEMATOCRIT 31.8 % (37-47); MEAN CELL VOLUME 66.5 fL (80-100); MEAN CORPUSCULAR HEMOGLOBIN 18.8 pg (25-34); MEAN CORPUSCULAR HGB CONC 28.3 g/dl (32-36); PLATELET COUNT 164 K/uL (130-400); RED CELL DISTRIBUTION WIDTH CV 17.4 % (11.5-14.5); RED CELL DISTRIBUTION WIDTH SD 42.1 fL (36.4-46.3); WHITE BLOOD COUNT 5.16 K/uL (4.8-10.8)
[2017-11-06 11:35] LABS: CALCIUM 8.9 mg/dl (8.5-10.1); CREATININE 0.65 mg/dl (0.60-1.20); POTASSIUM 3.5 mmol/L (3.5-5.1)
--- NOTE | 2017-11-06 11:47 | EMERGENCY ROOM VISIT NOTE ---
History First contact with patient: 11:13 Chief Complaint: URINARY SYMPTOMS Stated Complaint: SEVERE PAIN RT SIDE AND BACK,FREQUENT URINATION Nursing Triage Summary: frequency, burning with urination, occasional nausea last 3 days History of Present Illness The patient is a 37 year old female who presents to the Emergency Room via private vehicle with complaints of "severe right side pain and back, frequent urination". The patient states that she has been experiencing right flank pain , nausea and urinary frequency 3 days. She notes that she has felt similar but not quite this much pain in the past in this region. She rates her current pain is a 9/10. She does note a history of pyelonephritis. She denies any vaginal bleeding, vaginal discharge, concern over sexual transmitted infection, history of kidney stones, vomiting, change in bowel movements, dysuria, hematuria, chest pain, shortness of breath, fevers, chills. She does note a medical history of anemia which is chronic. Review of Systems A complete 10-point Review of Systems was discussed with the patient, with pertinent positives and negatives listed in the History of Present Illness. All remaining Review of Systems questions can be considered negative unless otherwise specified. Past Medical/Surgical History Medical Problems: (1) IUGR (2) Migraine (3) R/O labor (4) Vaginal delivery Family History Cancer Diabetes mellitus Hypertension Social History Smoking Status: Current Every Day Smoker Marital Status: in relationship Housing Status: lives with significant other Current/Historical Medications Scheduled Ferrous Sulfate (Ferrous Sulfate), 325 MG PO BID Scheduled PRN Acetaminophen (Tylenol), 1,000 MG PO Q6H PRN for Pain or Fever Hydrocodone/Acetaminophen 5MG/325MG (Belden 5MG/325MG), 1 TABLET PO Q4H PRN for Pain Ibuprofen (Advil), 200-600 MG PO Q4H PRN for Pain or Fever Physical Exam Vital Signs Date Time Temp Pulse Resp B/P (MAP) Pulse Ox O2 Delivery O2 Flow Rate FiO2 11/06/17 15:40 18 11/06/17 15:07 69 18 102/71 100 Room Air 11/06/17 14:14 71 20 123/84 99 Room Air 11/06/17 12:08 76 14 114/79 100 Room Air 11/06/17 10:55 36.7 95 18 119/80 98 Room Air Physical Exam VITAL SIGNS - Vital signs and nursing notes were reviewed. Stable. Afebrile. GENERAL -37-year-old female appearing her stated age who is in no acute distress. Communicates well with provider and answers questions appropriately. SKIN - Without rashes. No meningeal or petechial rash. HEAD - NC/AT. EYES - PERRL with EOMI bilaterally. Sclera anicteric. EARS - No deformities of external structures noted on gross examination bilaterally. NOSE - Midline and without cyanosis. No epistaxis or purulent drainage noted. MOUTH/OROPHARYNX - Without perioral cyanosis. LUNGS - Chest wall symmetric without accessory muscle use, intercostals retractions, or central cyanosis. Normal vesicular breath sounds CTA B/L. No wheezes, rales, or rhonchi appreciated. CARDIAC - RRR with S1/S2. No murmur, rubs, or gallops appreciated. ABDOMEN - Abdominal contour normal without pulsations or visible masses. BS normoactive all four quadrants. No tenderness, palpable masses, hepatosplenomegaly, or ascites noted. Right-sided CVA tenderness noted. EXTREMITIES - No clubbing or peripheral cyanosis. No pretibial edema present. + 5/5 strength noted in UE/LE bilaterally. NEUROLOGIC - Cranial nerves II through XII grossly intact. Sensory intact to light touch throughout. PSYCH - A&Ox3 and cooperates fully with examiner. Pt is very pleasant and interacts well with examiner. Medical Decision & Procedures ER Provider Diagnostic Interpretation: KUB CLINICAL HISTORY: Right flank pain with urinary urgency. COMPARISON STUDY: CT of the abdomen and pelvis March 10, 2017. FINDINGS: Renal shadows are partially obscured by stool. No urinary calculi are identified. The bowel gas pattern is normal. Visualized skeletal structures are unremarkable. IMPRESSION: 1. No urinary calculi identified. 2. No evidence for a bowel obstruction. Electronically signed by: Singh Blackburn M.D. 11/06/2017 11:51 AM Dictated Date/Time: 11/06/2017 11:49 AM RENAL ULTRASOUND CLINICAL HISTORY: Right flank pain with urinary frequency. COMPARISON STUDY: Renal ultrasound June 12, [address] of the abdomen and pelvis March 10, 2017. KUB performed earlier today. TECHNIQUE: Sonography of the kidneys and the urinary bladder was performed. FINDINGS: The right kidney measures 10.1 cm in maximal dimension and the left measures 10.3 cm. There is no hydronephrosis. No calculi or masses are identified within the kidneys by sonography. Renal echogenicity, size and cortical thickness are normal. Both ureteral jets are identified. IMPRESSION: Normal renal ultrasound. No hydronephrosis. Electronically signed by: Singh Blackburn M.D. 11/06/2017 3:15 PM Dictated Date/Time: 11/06/2017 3:14 PM Laboratory Results 11/06/17 11:08 11/06/17 11:08 Test 11/06/17 11:08 Red Blood Count 4.78 M/uL (4.2-5.4) Mean Corpuscular Volume 66.5 fL (80-100) Mean Corpuscular Hemoglobin 18.8 pg (25-34) Mean Corpuscular Hemoglobin Concent 28.3 g/dl (32-36) RDW Standard Deviation 42.1 fL (36.4-46.3) RDW Coefficient of Variation 17.4 % (11.5-14.5) Urine Color YELLOW Urine Appearance CLEAR (CLEAR) Urine pH 7.0 (4.5-7.5) Urine Specific [place] 1.005 (1.000-1.030) Urine Protein NEG (NEG) Urine Glucose (UA) NEG (NEG) Urine Ketones NEG (NEG) Urine Occult Blood NEG (NEG) Urine Nitrite NEG (NEG) Urine Bilirubin NEG (NEG) Urine Urobilinogen NEG (NEG) Urine Leukocyte Esterase TRACE (NEG) Urine WBC (Auto) /hpf (0-5) Urine RBC (Auto) /hpf (0-4) Urine Hyaline Casts (Auto) /lpf (0-5) Urine Epithelial Cells (Auto) /lpf (0-5) Urine Bacteria (Auto) (NEG) Urine RBC 0-4 /hpf (0-4) Urine WBC 0 /hpf (0-5) Urine Epithelial Cells 20-30 /lpf (0-5) Urine Bacteria NEG (NEG) Urine Test NEG (NEG) Anion Gap 9.0 mmol/L (3-11) Est Creatinine Clear Calc Drug Dose 107.6 ml/min Estimated GFR () 133.3 Estimated GFR (Non- 115.0 BUN/Creatinine Ratio 19.3 (10-20) Calcium Level 8.9 mg/dl (8.5-10.1) Medications Administered Medications (Trade) Dose Ordered Sig/Shoaib Route Start Time Stop Time Status Last Admin Dose Admin Sodium Chloride 500 ml @ 999 mls/hr Q31M STAT IV 11/06/17 11:21 11/06/17 11:51 DC 11/06/17 11:21 999 MLS/HR Acetaminophen (Tylenol Tab) 500 mg NOW STAT PO 11/06/17 13:57 11/06/17 13:58 DC 11/06/17 13:57 500 MG Medical Decision Patient was seen and evaluated as above in room C5. Review was performed of nursing notes and vital signs. After obtaining a thorough history and physical examination the above work up was performed. She presents to us today with right-sided flank pain and dysuria. The pain/tenderness in the right flank is certainly reproducible on examination. I question if this is musculoskeletal versus true CVA tenderness. Decision was made to obtain a KUB as well as renal ultrasound. These were negative. She declined pain medication while here noting that she was driving, but was given Tylenol. She was reevaluated and noted persistence of her pain. CBC reveals no concerning leukocytosis, or metabolic emergency. I will note that there is anemia with hemoglobin of 9. The patient warned me ahead of time that she is anemic, and typically has values in the sevens. She is already being worked up for this. She notes no symptoms currently such as feeling she is going to pass out, chest pain, shortness of breath or other emergent findings with anemia. She notes that that is actually improved compared to previous. She has no findings on examination to reveal evidence of blood loss. Her urinalysis is not indicative of infection. I suspect that her urinary frequency could be to be a UTI which has now passed or is not related to infectious etiology. Furthermore, her right flank pain is worse with palpation and I suspect is more likely a musculoskeletal strain rather than an intrinsic or intra-abdominal process. I do not believe that CT scan is warranted, as she recently had one of these and no emergent process was noted. Her vital signs are stable. At this time I believe she can be discharged home in stable condition. Because of her amount of pain I will be giving her a short course of pain medication. No red flags in the [place] drug monitoring system. No evidence of cauda equina syndrome. She is to call her family doctor to schedule follow-up. The patient was educated upon management, educated upon todays findings/results, educated upon symptoms in which to return, had questions answered prior to discharge, and was discharged home in good condition. In the evaluation and treatment of this patient the following differential diagnoses were entertained: UTI, pyelonephritis, ovarian cyst, ovarian torsion, lumbar strain, among others. Impression Primary Impression: Strain of lumbar paraspinous muscle Additional Impression: Anemia Departure Information Dispostion Home / Self-Care Condition GOOD Prescriptions Hydrocodone/Acetaminophen 5MG/325MG (Belden 5MG/325MG) Tab 1 TABLET PO Q4H Y for Pain, #15 TAB For Initial Treatment Prov: Kwaku Anderson PA-C 11/06/17 Referrals No Doctor, Assigned (PCP) Patient Instructions My [facility] Additional Instructions You have been treated in the Emergency Department for Back Pain. You have been prescribed NORCO to be used for pain control. This is a narcotic medication. You cannot drive or consume alcohol while on this medicine. This medicine should only be used for pain that cannot be controlled with over-the- counter pain medicines. Please do not take this with Tylenol. I believe he likely pulled a muscle in the back. For pain control, you can use the following [id number] medicines (if >12 yo): Do not take Tylenol with Belden. - Regular strength (200 mg/tab) Advil (ibuprofen) 1-2 tabs every 4-6 hours as needed. Do not exceed a dose of 3200 mg per day. If this is an acute injury, ice can be applied to the area of pain for the first 3 days to help decrease pain and inflammation. After the first 3 days, a heating pad can be used over the area for continued soothing relief. You should schedule a follow-up appointment in 2-3 days with your Primary Care Provider for further evaluation and treatment of your back pain. Return to the Emergency Department if your current symptoms worsen despite treatment course outlined above, or if you develop any of the following symptoms : intractable pain despite aforementioned treatment course, loss of control of your bowel or bladder, numbness or tingling in your groin, or development of a fever. Problem Qualifiers
--- NOTE | 2017-11-06 11:53 | DIAGNOSTIC IMAGING REPORT ---
KUB CLINICAL HISTORY: Right flank pain with urinary urgency. COMPARISON STUDY: CT of the abdomen and pelvis March 10, 2017. FINDINGS: Renal shadows are partially obscured by stool. No urinary calculi are identified. The bowel gas pattern is normal. Visualized skeletal structures are unremarkable. IMPRESSION: 1. No urinary calculi identified. 2. No evidence for a bowel obstruction. Electronically signed by: Singh Blackburn M.D. 11/06/2017 11:51 AM Dictated Date/Time: 11/06/2017 11:49 AM
[2017-11-06] MEDS ORDERED: ACETAMINOPHEN 500 MG TAB PO STA (13:57)
[2017-11-06 15:07] VITALS: BP 102/71; PULSE 69; O2SAT 100
--- NOTE | 2017-11-06 15:16 | DIAGNOSTIC IMAGING REPORT ---
RENAL ULTRASOUND CLINICAL HISTORY: Right flank pain with urinary frequency. COMPARISON STUDY: Renal ultrasound June 12, [address] of the abdomen and pelvis March 10, 2017. KUB performed earlier today. TECHNIQUE: Sonography of the kidneys and the urinary bladder was performed. FINDINGS: The right kidney measures 10.1 cm in maximal dimension and the left measures 10.3 cm. There is no hydronephrosis. No calculi or masses are identified within the kidneys by sonography. Renal echogenicity, size and cortical thickness are normal. Both ureteral jets are identified. IMPRESSION: Normal renal ultrasound. No hydronephrosis. Electronically signed by: Singh Blackburn M.D. 11/06/2017 3:15 PM Dictated Date/Time: 11/06/2017 3:14 PM
[2017-11-06] MEDS ORDERED: HYDR-5688 PO (15:28)
== END 2017-11-06 15:40 | disposition home or self-care (01) ==
LOC: C.EDB 10:48 → C.EDC 15:40
DX: S39.012A Strain of muscle, fascia and tendon of lower back, initial encounter (principal); D64.9 Anemia, unspecified; X58.XXXA Exposure to other specified factors, initial encounter; F17.200 Nicotine dependence, unspecified, uncomplicated